=== PATIENT | female | born 1960 | race Caucasian/White ===

== ENCOUNTER → 2019-02-19 08:00 | Outpatient (CLI) | payer OTHER, SELFPAY ==
[2019-02-12 09:46] VITALS: BMI 33.0
[2019-02-19 12:48] LABS: Absolute Lymphocyte Count 1.18 X10^3/ul (0.83-4.51); Absolute Neutrophil Count 1.6 X10^3/uL (2.0-7.7); Basophil# 0.03 X10^3/uL; Basophil% 0.9 % (0-1); Eosinophil# 0.24 X10^3/uL; Eosinophils% 6.9 % (0-5); Hematocrit 42.3 % (37-47); Hemoglobin 13.9 g/dl (12.0-15.0); Lymphocyte # 1.18 X10^3/ul (4.0); Mean Corp Hgb Conc 32.9 g/gl (32-36); Mean Corpuscular Volume 91.2 fL (81-99); Mean Platelet Vol. 12.7 fl (6.2-12.0); Monocyte# 0.39 X10^3/uL; Monocyte% 11.2 % (0-10); Neutrophil # 1.63 X10^3/uL (2.7-7.7); Platelet Count 208 K/mm3 (150-450); RBC Distribution Width CV 12.9 % (11.6-14.6); RBC Distribution Width SD 42.2 fl (35.1-43.9); Red Blood Count 4.64 M/mm3 (4.2-5.4); White Blood Count 3.5 K/mm3 (4.4-11.0)
[2019-02-19 12:52] LABS: POSITIVE COUNT NO; POSITIVE DIFFERENTIAL NO; POSITIVE MORPHOLOGY NO
[2019-02-19 13:19] LABS: AST(SGOT) 33 U/L (15-37); Alanine Aminotransfer ALT/SGPT 46 U/L (13-56); Albumin, Serum 3.6 g/dL (3.2-5.0); Alkaline Phosphatase 86 U/L (45-117); Anion Gap 8 (5-15); BUN 11 mg/dL (7-18); BUN/Creat Ratio 13.1 RATIO (10-20); Calcium,Total 9.1 mg/dL (8.5-10.1); Chloride 104 mmol/L (98-107); Cholesterol 211 mg/dL (200); Creatinine, Serum 0.84 mg/dL (0.55-1.02); EST Glomerular Filtration Rate 73 mL/min (>60); Est Glom Filt Rate - Afr Amer 89 mL/min (>60); Globulin 3.6 g/dL (2.2-4.2); Glucose 92 mg/dL (74-106); High Density Lipoprotein 86 mg/dL; Potassium 3.4 mmol/L (3.5-5.1); Protein, Total 7.2 g/dL (6.4-8.2); Sodium Level 139 mmol/L (136-145); Triglycerides 86 mg/dL; Very Low Density Lipoprotein 17 mg/dL (5-40)
== END ==
PROVIDERS: Family Provider Family Medicine; PCP Internal Medicine; Visit Provider Internal Medicine
DX: Z00.00 Encounter for general adult medical examination without abnormal findings (principal); I10 Essential (primary) hypertension
CPT/HCPCS: 36415; 80053; 80061; 85025

== ENCOUNTER → 2019-04-19 09:43 | Outpatient (CLI) | payer OTHER, SELFPAY ==
[2019-04-19 09:12] VITALS: BMI 34.3
--- NOTE | 2019-04-19 10:27 | EKG12_ITS ---
Test Reason : CP Blood Pressure : / mmHG Vent. Rate : 069 BPM Atrial Rate : 069 BPM P-R Int : 140 ms QRS Dur : 074 ms QT Int : 402 ms P-R-T Axes : 040 -02 014 degrees QTc Int : 430 ms Sinus rhythm with Premature atrial complexes Otherwise normal ECG Confirmed by THEODORE HARRINGTON ([id number]), editor map CECILE MORALES ([id number]) on 04/26/2019 2:28:44 PM Referred By: Chauncey Dale Confirmed By:THEODORE HARRINGTON
== END ==
PROVIDERS: Family Provider Internal Medicine; PCP Internal Medicine; Referring Provider Internal Medicine; Visit Provider Internal Medicine
DX: R07.89 Other chest pain (principal)
CPT/HCPCS: 36415; 84484; 93005

== ENCOUNTER → 2019-08-20 10:19 | Outpatient (CLI) | payer OTHER, SELFPAY ==
[2019-05-14 09:00] VITALS: BMI 33.0
[2019-08-20 12:23] LABS: Absolute Lymphocyte Count 1.83 X10^3/uL (0.83-4.51); Absolute Neutrophil Count 1.3 X10^3/uL (2.0-7.7); Basophil# 0.04 X10^3/uL; Eosinophil# 0.39 X10^3/uL; Eosinophils% 9.7 % (0-5); Hematocrit 40.7 % (37-47); Lymphocyte # 1.83 X10^3/ul (4.0); Lymphocyte % 45.3 % (19-41); Mean Corp Hgb Conc 31.9 g/dL (32-36); Mean Corpuscular Hgb 29.3 pg (27.0-32.0); Mean Corpuscular Volume 91.7 fL (81-99); Mean Platelet Vol. 12.6 fl (6.2-12.0); Monocyte# 0.43 X10^3/uL; Monocyte% 10.6 % (0-10); NRBC Flagged by Analyzer 0 % (0-5); Neutrophil # 1.34 X10^3/uL (2.7-7.7); Neutrophil % 33.2 % (47-70); Platelet Count 265 K/mm3 (150-450); RBC Distribution Width CV 12.5 % (11.6-14.6); RBC Distribution Width SD 41.2 fl (35.1-43.9); Red Blood Count 4.44 M/mm3 (4.2-5.4)
[2019-08-20 12:31] LABS: Anion Gap 4 (5-15); BUN 12 mg/dL (7-18); BUN/Creat Ratio 14.3 RATIO (10-20); Calcium,Total 9.3 mg/dL (8.5-10.1); Chloride 107 mmol/L (98-107); Creatinine, Serum 0.84 mg/dL (0.55-1.02); EST Glomerular Filtration Rate 73 mL/min (>60); Est Glom Filt Rate - Afr Amer 89 mL/min (>60); Glucose 94 mg/dL (74-106); Potassium 4.2 mmol/L (3.5-5.1); Sodium Level 137 mmol/L (136-145)
== END ==
PROVIDERS: Family Provider Internal Medicine; PCP Internal Medicine; Visit Provider Internal Medicine
DX: I10 Essential (primary) hypertension (principal)
CPT/HCPCS: 36415; 80048; 85025

== ENCOUNTER → 2020-01-21 10:18 | Outpatient (CLI) | payer OTHER, SELFPAY ==
[2020-01-21 09:54] VITALS: BMI 33.0
[2020-01-21 12:26] LABS: AST(SGOT) 19 U/L (15-37); Alanine Aminotransfer ALT/SGPT 23 U/L (13-56); Albumin, Serum 3.7 g/dL (3.2-5.0); Alkaline Phosphatase 115 U/L (45-117); Anion Gap 7 (5-15); BUN 12 mg/dL (7-18); Calcium,Total 9.2 mg/dL (8.5-10.1); Chloride 103 mmol/L (98-107); Cholesterol 216 mg/dL (200); Creatinine, Serum 0.75 mg/dL (0.55-1.02); EST Glomerular Filtration Rate 83 mL/min (>60); Est Glom Filt Rate - Afr Amer 101 mL/min (>60); Globulin 3.6 g/dL (2.2-4.2); Glucose 107 mg/dL (74-106); High Density Lipoprotein 74 mg/dL; Potassium 3.5 mmol/L (3.5-5.1); Protein, Total 7.3 g/dL (6.4-8.2); Sodium Level 138 mmol/L (136-145); Triglycerides 138 mg/dL; Very Low Density Lipoprotein 28 mg/dL (5-40)
[2020-01-21 12:27] LABS: Hemoglobin A1c 5.6 % (3.8-5.6)
== END ==
PROVIDERS: PCP Internal Medicine; Referring Provider Internal Medicine; Visit Provider Internal Medicine
DX: I10 Essential (primary) hypertension (principal); E66.9 Obesity, unspecified
CPT/HCPCS: 36415; 80053; 80061; 83036

== ENCOUNTER → 2020-03-03 14:32 | Outpatient (CLI) | payer OTHER, SELFPAY ==
[2019-05-14 09:00] VITALS: BMI 33.0
[2020-01-21 09:54] VITALS: BMI 33.0
--- NOTE | 2020-03-03 14:52 | CT_ITS ---
History: 60-year-old female with osteoarthritis. Preoperative evaluation for XAVIER surgery. Examination and technique: CT of the right hip, knee and ankle without IV contrast. Axial images obtained with multiplanar reformats provided. Dose optimization was utilized. No relevant priors. FINDINGS: Right hip: No fracture or dislocation. Alignment anatomic. No significant degenerative changes. Calcification within the distal gluteus medius tendon near the insertion onto the greater trochanter. Normal bony mineralization. No acute soft tissue abnormality. Right knee: No fracture or dislocation. Marked osteoarthritis of the medial compartment and moderate osteoarthritis of the lateral and patellofemoral compartments. Small joint effusion. Prominent subcutaneous varicosities medially and laterally. Right ankle: No fracture or dislocation. Very mild for age degenerative changes. Alignment anatomic. No acute soft tissue abnormality. CT/Extremity Lower without Contra IMPRESSION: Prominent right knee osteoarthritis. No acute findings. Electronically Signed: Don Cyr, at 8:05 EDT Tel , Service support ,
== END ==
PROVIDERS: PCP Internal Medicine; Referring Provider Orthopaedic Surgery; Visit Provider Orthopaedic Surgery
DX: M17.11 Unilateral primary osteoarthritis, right knee (principal)
CPT/HCPCS: 73700

== ENCOUNTER 2020-03-13 09:06 | Observation (INO) | payer OTHER, SELFPAY ==
[2019-05-14 09:00] VITALS: BMI 33.0
[2020-01-21 09:54] VITALS: BMI 33.0
--- NOTE | 2020-03-03 15:06 | EKG12_ITS ---
Test Reason : PRE OP Blood Pressure : / mmHG Vent. Rate : 068 BPM Atrial Rate : 068 BPM P-R Int : 156 ms QRS Dur : 076 ms QT Int : 410 ms P-R-T Axes : 036 -03 007 degrees QTc Int : 435 ms Normal sinus rhythm Inferior infarct , age undetermined Abnormal ECG Confirmed by THEODORE HARRINGTON ([id number]), offline editor CECILE MORALES ([id number]) on 03/06/2020 11:39:57 AM Referred By: Roland Oviedo Confirmed By:THEODORE HARRINGTON
[2020-03-03 15:42] LABS: Absolute Lymphocyte Count 1.74 X10^3/uL (0.83-4.51); Absolute Neutrophil Count 2.9 X10^3/uL (2.0-7.7); Basophil# 0.06 X10^3/uL; Basophil% 1.1 % (0-1); Eosinophil# 0.16 X10^3/uL; Hematocrit 39.6 % (37-47); Hemoglobin 13.1 g/dL (12.0-15.0); Lymphocyte # 1.74 X10^3/ul (4.0); Lymphocyte % 32.2 % (19-41); Mean Corp Hgb Conc 33.1 g/dL (32-36); Mean Corpuscular Volume 90.6 fL (81-99); Monocyte# 0.49 X10^3/uL; Monocyte% 9.1 % (0-10); NRBC Flagged by Analyzer 0 % (0-5); Neutrophil # 2.94 X10^3/uL (2.7-7.7); Neutrophil % 54.4 % (47-70); Platelet Count 242 K/mm3 (150-450); RBC Distribution Width CV 12.5 % (11.6-14.6); RBC Distribution Width SD 41.4 fl (35.1-43.9); Red Blood Count 4.37 M/mm3 (4.2-5.4); White Blood Count 5.4 K/mm3 (4.4-11.0)
[2020-03-03 16:11] LABS: Anion Gap 5 (5-15); BUN 17 mg/dL (7-18); BUN/Creat Ratio 17.5 RATIO (10-20); Calcium,Total 9.1 mg/dL (8.5-10.1); Chloride 106 mmol/L (98-107); Creatinine, Serum 0.97 mg/dL (0.55-1.02); EST Glomerular Filtration Rate 62 mL/min (>60); Est Glom Filt Rate - Afr Amer 75 mL/min (>60); Glucose 101 mg/dL (74-106); Potassium 3.2 mmol/L (3.5-5.1); Sodium Level 139 mmol/L (136-145)
[2020-03-06 16:24] LABS: Magnesium 2.2 mg/dL (1.6-2.6)
[2020-03-13] VITALS (11 sets, daily range): BP systolic 112–160; BP diastolic 51–85; PULSE 70–82; RESP 16–18; TEMP 36.2–37.2; O2SAT 96–100; BMI 36.5
--- NOTE | 2020-03-13 | KNEE_PTH ---
PATIENT: JR MORALES LOC: [facility]3 U#:[id number] AGE/SX: 60/F ROOM: MS311 RE03/13/[address]: Dr. Roland Oviedo DO : 1960 BED: 1 DIS: 03/14/2020 SPEC #: [id number] RECD: 03/13/20 13:49 STATUS: KRISTINA REQ #: [id number] ANGELINE: 03/13/20 00:[address]: Roland Oviedo DEPT: SURGICAL PATHOLOGY RECD BY: Elias Hartley ENTERED: 03/14/20 08:02 SP TYPE: TOTAL KNEE OTHR DR: Dr. Chauncey Dale MD Tissues: Knee, NOS Procedures: Decalcification bone/plaque Surgery Specimen Level IV HEADER OPERATION: ERAS, total knee replacement robotic arm assist PRE-OP DIAGNOSIS: Right knee osteoarthritis TISSUE SUBMITTED: Right knee bone and tissue MICROSCOPIC DIAGNOSIS Bone and soft tissue of right knee, total knee resection: Degenerative joint disease. Mild synovial hyperplasia. AM:yessy 03/17/20 MICROSCOPIC DESCRIPTION Slides are reviewed. GROSS DESCRIPTION Received is one container designated bone and soft tissue right knee. The specimen consists of multiple fragments of marie-yellow bone measuring in aggregate 10 x 7 x 3 cm. Also in the specimen container are multiple fragments of yellow-white soft tissue measuring in aggregate 9 x 7 x 2 cm. A number of bony fragments contain articular surfaces consistent with tibial plateau and femoral condyle and displaying prominent osteophyte formation and bone erosion. Hook And Eye Sewing Machine Operator sections are submitted in two cassettes as follows: 1 - soft tissue, 2 - bone after decalcification. / SJ:yessy 03/14/20 TC:5 [facility]: [id number]
[2020-03-13] MEDS: Gabapentin 600 MG Tablet PO (09:53)
[2020-03-13] MEDS: Acetaminophen 500 MG Tablet 1000 MG PO ×3 (09:53→21:33)
[2020-03-13 10:00] LABS: Bedside Glucose 109 mg/dL (70-110)
[2020-03-13] MEDS: Lactated Ringers 1,000 ML 100 ML IV (10:30)
[2020-03-13] MEDS: Cefazolin 2 GM in 0.9% Normal Saline 100 ML IV (10:34)
--- NOTE | 2020-03-13 11:55 | OP.PCM_ITS ---
Report of Operation Date of Procedure: 03/13/20 Pre-Operative Diagnosis: OA Right knee Post-Operative Diagnosis: same Surgery/Procedure Performed:: Right TKR windows vmware engineer: Moise Perrin Type of Anesthesia:: Spinal Anesthesiologist: Brayan Bergman - Admkiran VTE Documentation VTE Present on Admission: No VTE Mechan Device Prophylaxis: SCD's, Thigh High ERIC Hose VTE Pharm Prophylaxis ordered?: Yes
--- NOTE | 2020-03-13 12:42 | RAD_ITS ---
STUDY: X-RAY - RIGHT KNEE REASON FOR EXAM: Female, 60 years old. POST OP TECHNIQUE: AP and lateral view(s) of the knee. COMPARISON: None. FINDINGS: Normal visualized distal femur. Normal visualized proximal tibia and fibula. Normal proximal tibiofibular articulation. The patient is status post total knee replacement. There is good alignment. Postoperative soft tissue changes. RAD/Knee 1 or 2 Views IMPRESSION: Status post total knee replacement. There is good alignment. Postoperative soft tissue changes. Electronically Signed: Denver Jacobs, at 13:54 EDT , Service support ,
[2020-03-13] MEDS: Lactated Ringers 1,000 ML 999 ML IV (12:57)
[2020-03-13 13:30] LABS: Hematocrit 37.8 % (37-47); Hemoglobin 12.3 g/dL (12.0-15.0); Mean Corp Hgb Conc 32.5 g/dL (32-36); Mean Corpuscular Hgb 29.8 pg (27.0-32.0); Mean Corpuscular Volume 91.5 fL (81-99); Mean Platelet Vol. 11.9 fl (6.2-12.0); Platelet Count 215 K/mm3 (150-450); RBC Distribution Width CV 12.3 % (11.6-14.6); RBC Distribution Width SD 41.3 fl (35.1-43.9); Red Blood Count 4.13 M/mm3 (4.2-5.4)
[2020-03-13 13:42] LABS: Anion Gap 6 (5-15); BUN 10 mg/dL (7-18); BUN/Creat Ratio 10.6 RATIO (10-20); Calcium,Total 8.8 mg/dL (8.5-10.1); Chloride 106 mmol/L (98-107); Creatinine, Serum 0.94 mg/dL (0.55-1.02); EST Glomerular Filtration Rate 64 mL/min (>60); Est Glom Filt Rate - Afr Amer 78 mL/min (>60); Estimated Creatinine Clearance 54.27 ml/min; Glucose 125 mg/dL (74-106); Potassium 3.5 mmol/L (3.5-5.1); Sodium Level 139 mmol/L (136-145)
[2020-03-13] MEDS: hydroCHLOROthiazide 25 MG Tablet PO (13:57)
[2020-03-13] MEDS: Lactated Ringers 1,000 ML 125 ML IV (13:57)
[2020-03-13] MEDS: Ondansetron 4 MG/2 ML Vial IV (15:50)
[2020-03-13] MEDS: Aspirin 81 MG TAB.CHEW PO (17:46)
[2020-03-13] MEDS: Cefazolin 1 GM/50 ML BAG IV (18:51)
[2020-03-13] MEDS: DiphenhydrAMINE 25 MG Capsule PO (21:33)
[2020-03-13] MEDS: Senna/Docusate Sodium 1 Tablet 2 TABLET PO (21:33)
[2020-03-14] MEDS: Cefazolin 1 GM/50 ML BAG IV (02:13)
[2020-03-14 02:15] VITALS: BP 133/72; PULSE 73; RESP 18; TEMP 36.6; O2SAT 96
[2020-03-14] MEDS: proMETHazine 25 MG/ML Syringe 12.5 MG IM (02:24)
[2020-03-14] MEDS: oxyCODONE 5 MG Tablet PO ×3 (02:25→13:42)
[2020-03-14] MEDS: Acetaminophen 500 MG Tablet 1000 MG PO ×2 (05:33→13:41)
[2020-03-14 05:46] LABS: Hematocrit 38.6 % (37-47); Hemoglobin 12.5 g/dL (12.0-15.0); Mean Corp Hgb Conc 32.4 g/dL (32-36); Mean Corpuscular Hgb 30.9 pg (27.0-32.0); Mean Corpuscular Volume 95.5 fL (81-99); Platelet Count 176 K/mm3 (150-450); RBC Distribution Width CV 12.6 % (11.6-14.6); RBC Distribution Width SD 43.8 fl (35.1-43.9); Red Blood Count 4.04 M/mm3 (4.2-5.4); White Blood Count 7.4 K/mm3 (4.4-11.0)
[2020-03-14 06:06] LABS: Anion Gap 6 (5-15); BUN 8 mg/dL (7-18); BUN/Creat Ratio 9.6 RATIO (10-20); Calcium,Total 8.6 mg/dL (8.5-10.1); Chloride 107 mmol/L (98-107); Creatinine, Serum 0.84 mg/dL (0.55-1.02); EST Glomerular Filtration Rate 74 mL/min (>60); Est Glom Filt Rate - Afr Amer 89 mL/min (>60); Estimated Creatinine Clearance 60.73 ml/min; Glucose 112 mg/dL (74-106); Potassium 3.6 mmol/L (3.5-5.1); Sodium Level 138 mmol/L (136-145)
--- NOTE | 2020-03-14 07:50 | PN.ORTHO_ITS ---
Subjective: Patient sitting at bedside eating breakfast. Patient states pain is well- managed. Patient denies chest pain, shortness of breath, calf pain, nausea vomiting. Patient has no other complaints. Patient states she is ready for discharge home this afternoon. Objective: Dressings clean dry intact. Negative signs and symptoms of DVT. I reviewed the labs and vitals all noted in the medical record. Patient is afebrile. Patient has no respiratory distress, speaking in full sentences. Neurovascular she is otherwise intact. - Physical Exam Vitals/I&O's: Vital Signs Temp Pulse Resp BP Pulse Ox 97.8 F 73 18 133/72 H 96 03/14/20 02:15 03/14/20 02:15 03/14/20 02:15 03/14/20 02:15 03/14/20 02:15 Oxygen Flow Rate (L/min) 6 Oxygen Delivery Method Room Air Weight: 98 kg Body Mass Index (BMI) 36.5 Intake and Output for Last 24 Hours 03/12/20 03/13/20 03/14/20 23:59 23:59 23:59 Intake Total 3843.33 / 3843.33 991.67 / 991.67 Output Total 1300 / 1300 Balance 3843.33 / 3843.33 -308.33 / -308.33 General: Alert, Oriented x3, Cooperative HEENT: PERRLA Oral: Moist Mucosa Neurological: Cranial nerves II-XII grossly intact Psych/Mental Status: Normal Affect Laboratory Results 03/13/20 09:51: POC Glucose 109 03/13/20 13:20: WBC 5.0, RBC 4.13 L, Hgb 12.3, Hct 37.8, MCV 91.5, MCH 29.8, MCHC 32.5, RDW Std Deviation 41.3, RDW Coeff of Gen 12.3, Plt Count 215, MPV 11.9 03/13/20 13:20: Sodium 139, Potassium 3.5, Chloride 106, Carbon Dioxide 27.0, Anion Gap 6, BUN 10, Creatinine 0.94, Estim Creat Clear Calc 54.27, Est GFR (MDRD) Af Amer 78, Est GFR (MDRD) Non-Af 64, BUN/Creatinine Ratio 10.6, Glucose 125 H, Calcium 8.8 03/14/20 05:14: WBC 7.4, RBC 4.04 L, Hgb 12.5, Hct 38.6, MCV 95.5, MCH 30.9, MCHC 32.4, RDW Std Deviation 43.8, RDW Coeff of Gen 12.6, Plt Count 176, MPV 12.0 03/14/20 05:14: Sodium 138, Potassium 3.6, Chloride 107, Carbon Dioxide 25.0, Anion Gap 6, BUN 8, Creatinine 0.84, Estim Creat Clear Calc 60.73, Est GFR (MDRD) Af Amer 89, Est GFR (MDRD) Non-Af 74, BUN/Creatinine Ratio 9.6 L, Glucose 112 H, Calcium 8.6 Current Medications Acetaminophen (Tylenol) 1,000 mg PO Q8 [facility] Last Admin: 03/14/20 05:33 Dose: 1,000 mg Documented by: Albuterol Sulfate (Ventolin Aerosols) 2.5 mg INHALATION Q4H PRN PRN Reason: shortness of breath/wheezing Alprazolam (Xanax) 0.25 mg PO QHS PRN PRN Reason: anxiety Aspirin (Aspirin, Baby) 81 mg PO BIDCM [facility] Last Admin: 03/13/20 17:46 Dose: 81 mg Documented by: Diphenhydramine HCl (Benadryl) 25 mg PO QHS [facility] Last Admin: 03/13/20 21:33 Dose: 25 mg Documented by: Fluticasone Propionate (Flonase Nasal [place]) 2 spray NASAL DAILY [facility] Hydrochlorothiazide (Hctz) 25 mg PO DAILY [facility] Last Admin: 03/13/20 13:57 Dose: 25 mg Documented by: Sodium Chloride () 250 mls @ 15 mls/hr IV .[id number] PRN PRN Reason: Saline Flush Sodium Chloride () 250 mls @ 15 mls/hr IV .[id number] PRN PRN Reason: Additional IVPB Infusion Metoprolol Succinate (Toprol Xl (Beta Aime)) 25 mg PO DAILY [facility] Ondansetron HCl (Zofran) 4 mg IV Q8H PRN PRN PRN Reason: NAUSEA Last Admin: 03/13/20 15:50 Dose: 4 mg Documented by: Oxycodone HCl (Oxyir) 5 - 10 mg PO Q4H PRN PRN PRN Reason: Pain Score 4-10/10 Last Admin: 03/14/20 02:25 Dose: 5 mg Documented by: Pantoprazole Sodium (Protonix) 40 mg PO DAILY [facility] Pot[facility] ([facility] Last Admin: 03/13/20 17:47 Dose: 20 meq Documented by: Promethazine HCl (Phenergan) 12.5 mg IM Q6H PRN PRN; Protocol PRN Reason: NAUSEA/VOMITING Last Admin: 03/14/20 02:24 Dose: 12.5 mg Documented by: Senna/Docusate Sodium (Senokot-S, Ivonne-Colace) 2 tablet PO BID [facility] Last Admin: 03/13/20 21:33 Dose: 2 tablet Documented by: Sodium Chloride () 10 - 40 ml IV UD PRN PRN Reason: SALINE FLUSH Medical Necessity - Tobacco Use Smoking Status: Never smoker Tobacco Use: Non-smoker Assessment/Plan All Active Problems (Last Reviewed 01/21/20 @ 09:54 by Nima Mccallum) Skin cancer (Resolved)
--- NOTE | 2020-03-14 08:04 | DCINST_ITS ---
Discharge Diet: No Restrictions Discharge Activity: May Not Drive, May Shower, Use Walker May shower in (days): 3 Ice area for (Minutes): 20 - each hour while awake. Weight Bearing Status: Weight bearing as tolerated Elevate: Operative Extremity Additional Activity Instructions:: Wear elastic stockings for 2 weeks after your surgery. Call your doctor if your incision/area has: Continuous Slow Oozing, Sudden Increased Bleeding, Increased Pain/ Swelling, Increased Redness, Foul Smelling Discharge Call your doctor if you observe: Fever of 101 or Higher, Coldness, Increased Pain - in extremity, Numbness or Tingling, Change in Color, Calf discomfort, Uncontrolled pain Change Dressing in (Days):: 0 - and daily as needed. Remove Dressing in (days):: 3 Cleanse incision/area with: Soap & Water Allergies/Adverse Reactions: Allergies ciprofloxacin [From Cipro] Allergy (Verified 03/06/20 15:15) Hives dyes Allergy (Severe, Uncoded 03/06/20 15:15) Dizzines, Vomiting Medications to take at Discharge ibuprofen 200 mg tablet 200 mg PO Q6H PRN 02/12/19 krill oil 500 mg capsule 500 mg PO DAILY cap 02/12/19 potassium chloride 20 mEq tablet,extended release 20 meq PO BID 02/12/19 alprazolam 0.25 mg tablet 0.25 mg PO QHS PRN #30 tab 08/20/19 fluticasone propionate 50 mcg/actuation nasal spray,suspension 2 spray INTRANASAL DAILY #15.8 ml 08/20/19 omeprazole 40 mg capsule,delayed release 40 mg PO DAILY #90 cap 08/27/19 albuterol sulfate 90 mcg/actuation aerosol inhaler 2 puff INHALATION Q6H PRN #8.5 g 01/21/20 alprazolam 0.25 mg tablet 0.25 mg PO QHS PRN #30 tab 02/07/20 hydrochlorothiazide 25 mg tablet 25 mg PO DAILY #90 tab 03/03/20 metoprolol succinate 25 mg tablet,extended release 24 hr 25 mg PO DAILY #90 tab 03/03/20 Diphenhydramine HCl [Benadryl Allergy] 25 mg PO QHS 03/06/20 Acetaminophen [Tylenol] 1,000 mg PO Q8 #90 tab 03/14/20 Aspirin [Aspirin, Baby] 81 mg PO BIDCM #60 tab.chew 03/14/20 Oxycodone [Oxyir] 5 - 10 mg PO Q4H PRN PRN 7 Days #84 tablet 03/14/20 Senna/Docusate Sodium [Senokot-S] 2 tab PO BID tab 03/14/20 proMETHazine tablet [Phenergan tablet] 25 mg PO Q6H PRN PRN #30 tab 03/14/20 The following prescriptions were given: Aspirin [Aspirin, Baby] 81 mg PO BIDCM #60 tab.chew Transmission Status: Pending to [facility] Oxycodone [Oxyir] 5 - 10 mg PO Q4H PRN PRN 7 Days #84 tablet PRN Reason: Pain Score 4-10/10 Transmission Status: Sent to [facility] proMETHazine tablet [Phenergan tablet] 25 mg PO Q6H PRN PRN #30 tab PRN Reason: Nausea Transmission Status: Pending to [facility] Acetaminophen [Tylenol] 1,000 mg PO Q8 #90 tab Transmission Status: Pending to [facility] Primary Care Physician: Chauncey Dale MD [Primary Care Provider] - Test Results: Test results from this visit will be discussed in further detail at your follow- up appointment, if applicable. Please Follow Up With: Moise Perrin PA-C When: as scheduled/see pink sheet
[2020-03-14 08:15] VITALS: BP 146/64; PULSE 76; RESP 16; TEMP 36.7; O2SAT 98
[2020-03-14 08:16] VITALS: PULSE 76
[2020-03-14] MEDS: hydroCHLOROthiazide 25 MG Tablet PO (08:16)
[2020-03-14] MEDS: Senna/Docusate Sodium 1 Tablet 2 TABLET PO (08:16)
[2020-03-14] MEDS: Pantoprazole Sodium 40 MG Tablet PO (08:16)
[2020-03-14] MEDS: Aspirin 81 MG TAB.CHEW PO (08:16)
[2020-03-14] MEDS: Metoprolol(XL)Succ 25 MG Tablet PO (08:16)
--- NOTE | 2020-03-14 09:35 | CASEMGMT ---
RN AIDAN PAINT COATING MACHINE OPERATOR CM to room to meet with patient for initial transition planning/care coordination assessment. SOFIA BERMUDEZ introduced self and role at [facility]. Pt voices understanding and consents to assessment at this time. Pt resting in bed in no distress at this time. Pt is A/O at this time and answers all questions appropriately. Care providers, pharmacy, and demographics verified/updated at this time. PCP: Dr Dale Specialists: Dr Oviedo Preferred Pharmacy: [facility]. Insurance: [employer] Prescription Benefit: Yes Living Will/HPOA: does not have LW but does have Healthcare POA, who is her . Pt made aware SW can assist w/LW if she would like to complete. Pt states not at this time. Given Drum [employer] Rac card and made aware can make an appt as an Out-pt if she chooses to complete in the future. LNOK: . 2 daughters: Darcy Huggins and Almaz Jaramillo Living Arrangements: Lives w/her in 2 story home w/2 steps to enter. 18-yr-old grandson lives with them. Pt was independent w/ADL's and IADL's prior to admission. States her has taken off of work for a week to help care for her. Transportation: Pt drove prior to surgery. will take her home @ discharge. DME: [facility] has the following DME: tub bench, hand held shower, raised toilet seat, cane, grab bars, walker. Pt states no need for further DME at this time. HHC/SNF: No history of either. No needs identified. Pt states she is aware she has an initial appt w/PT @ [facility] tomorrow 03/15/20 @ 0900 and states plan is to schedule PT appts at that time. Pt wishes to return home and states has no concerns with going home at time of discharge. CM to follow for any discharge planning/needs. Pt voices no concerns/needs at this time. Advised pt to ask for CM if any questions/concerns/needs arise. Voices understanding. PLAN: Home w/OP therapy @ [facility] Nancy DRAKE RN, CM
[2020-03-14] MEDS: morphine SR 15 MG Tablet PO (11:04)
[2020-03-14 13:45] VITALS: BP 134/79; PULSE 76; RESP 18; TEMP 36.7; O2SAT 97
== END 2020-03-14 14:40 | disposition home or self-care (01) ==
LOC: AC 09:07 → MS3 10:22
PROVIDERS: Anesthesiology; Admitting Provider Orthopaedic Surgery; PCP Internal Medicine; Referring Provider Orthopaedic Surgery; Visit Provider Orthopaedic Surgery
PROC: 0SRC0JZ Replacement of Right Knee Joint with Synthetic Substitute, Open Approach (ICD-10-PCS; CPT 27447; principal; 2020-03-13 10:20)
DX: M17.11 Unilateral primary osteoarthritis, right knee (principal); Z11.59 Encounter for screening for other viral diseases; R94.31 Abnormal electrocardiogram [ECG] [EKG]; K58.9 Irritable bowel syndrome, unspecified; K21.9 Gastro-esophageal reflux disease without esophagitis; F41.9 Anxiety disorder, unspecified; I10 Essential (primary) hypertension; J45.909 Unspecified asthma, uncomplicated; Z79.899 Other long term (current) drug therapy; Z79.82 Long term (current) use of aspirin; Z79.51 Long term (current) use of inhaled steroids; M21.161 Varus deformity, not elsewhere classified, right knee
CPT/HCPCS: 01400; 27447; 64447; S2900; 36415; 73560; 80048; 82962; 83735; 85025; 85027; 87081; 87635; 88305; 88311; 93005; 94799; 96361; 96365; 96366; 96375; 97110; 97116; 97161; 97166; 97530; 97535; 99218; 99251; C1776; J7120; G0378; G0379; G0463; J2405; U0003

== ENCOUNTER → 2020-08-21 | Outpatient (CLI) | payer OTHER, SELFPAY ==
[2020-05-19 13:43] VITALS: BMI 36.8
== END | disposition home or self-care (01) ==
LOC: LABSPEC 13:57
PROVIDERS: PCP Internal Medicine; Referring Provider Internal Medicine; Visit Provider Internal Medicine
DX: Z20.822 Contact with and (suspected) exposure to COVID-19 (principal)
CPT/HCPCS: 87635; U0005; U0003

== ENCOUNTER → 2020-09-15 10:04 | Outpatient (CLI) | payer OTHER, SELFPAY ==
[2020-09-15 09:39] VITALS: BMI 38.0
[2020-09-15 12:31] LABS: Anion Gap 8 (5-15); BUN 12 mg/dL (7-18); Calcium,Total 9.2 mg/dL (8.5-10.1); Chloride 104 mmol/L (98-107); Creatinine, Serum 0.86 mg/dL (0.55-1.02); EST Glomerular Filtration Rate 71 mL/min (>60); Est Glom Filt Rate - Afr Amer 86 mL/min (>60); Glucose 91 mg/dL (74-106); Potassium 3.8 mmol/L (3.5-5.1); Sodium Level 139 mmol/L (136-145)
== END ==
PROVIDERS: PCP Internal Medicine; Referring Provider Internal Medicine; Visit Provider Internal Medicine
DX: I10 Essential (primary) hypertension (principal)
CPT/HCPCS: 36415; 80048

== ENCOUNTER 2020-10-20 08:12 | Outpatient (RCR) | payer OTHER, SELFPAY ==
[2020-09-15 09:39] VITALS: BMI 38.0
[2020-10-20] MEDS: COVID-19 VACC, MRNA(PFIZER)/PF 30 MCG/0.3 ML SYRINGE IM (14:44)
[2020-11-10] MEDS: COVID-19 VACC, MRNA(PFIZER)/PF 30 MCG/0.3 ML SYRINGE IM (14:23)
== END 2021-01-16 23:59 ==
LOC: IMMUN 08:12
PROVIDERS: PCP Internal Medicine; Visit Provider Family Medicine
DX: Z23 Encounter for immunization (principal)
CPT/HCPCS: 0001A; 0002A; 91300

== ENCOUNTER → 2020-12-15 09:18 | Outpatient (CLI) | payer OTHER, SELFPAY ==
[2020-12-15 09:01] VITALS: BMI 38.0
[2020-12-15 12:06] LABS: Erythrocyte Sedimentation Rate 32 mm/hr (0-30)
[2020-12-15 12:29] LABS: Rheumatoid Factor < 10.0 IU/mL (<15)
[2020-12-17 15:28] LABS: ANTINUCLEAR ANTIBODIES DIRECT Negative (Negative)
== END ==
PROVIDERS: PCP Internal Medicine; Referring Provider Internal Medicine; Visit Provider Internal Medicine
DX: M19.90 Unspecified osteoarthritis, unspecified site (principal)
CPT/HCPCS: 36415; 85652; 86038; 86140; 86225; 86235; 86431

== ENCOUNTER → 2021-05-04 | Outpatient (CLI) | payer OTHER, SELFPAY | END | disposition home or self-care (01) | PROVIDERS: PCP Internal Medicine; Referring Provider Physician Assistant; Visit Provider Physician Assistant | DX: Z20.822 Contact with and (suspected) exposure to COVID-19 (principal) | CPT/HCPCS: 87635; U0005; U0003 ==

== ENCOUNTER → 2021-05-25 09:35 | Outpatient (CLI) | payer OTHER, SELFPAY | PROVIDERS: PCP Internal Medicine; Referring Provider Physician Assistant; Visit Provider Physician Assistant | DX: Z00.00 Encounter for general adult medical examination without abnormal findings (principal); Z13.220 Encounter for screening for lipoid disorders; Z13.6 Encounter for screening for cardiovascular disorders; I10 Essential (primary) hypertension; K21.9 Gastro-esophageal reflux disease without esophagitis; E66.9 Obesity, unspecified | CPT/HCPCS: 36415 ==

== ENCOUNTER 2021-09-05 14:24 | Outpatient (CLI) | payer OTHER, SELFPAY ==
--- NOTE | 2021-09-05 | LES_PTH ---
PATIENT: JR MORALES LOC: [facility] U#:[id number] AGE/SX: 61/F ROOM: RE09/05/[address]: Dr. Mesfin Figueredo DO : 1960 BED: DIS: 09/05/2021 SPEC #: [id number] RECD: 09/05/21 16:33 STATUS: KRISTINA KARLOS #: [id number] ANGELINE: 09/05/21 00:[address]: Mesfin Figueredo DEPT: SURGICAL PATHOLOGY RECD BY: Sarah Elizalde ENTERED: 09/06/21 07:06 SP TYPE: Lesion OTHR DR: Dr. Chauncey Dale MD Tissues: Skin of flank, NOS Procedures: Surgery Specimen Level IV HEADER OPERATION: Shave excision PRE-OP DIAGNOSIS: Inflamed seborrheic keratosis TISSUE SUBMITTED: Right flank MICROSCOPIC DIAGNOSIS Skin lesion of right flank, shave biopsy: Verrucoid keratosis with associated parakeratosis and hyperkeratosis. AM:yessy 09/07/2021 MICROSCOPIC DESCRIPTION Slides are reviewed. GROSS DESCRIPTION Received is one container labeled with the patient's name and not further designated. The specimen consists of a shave biopsy of marie-white skin measuring 0.5 x 0.5 x 0.1 cm. The specimen is inked, bisected and submitted entirely in one cassette. / SJ:yessy 09/06/2021 TC:5 CPT: 45461
== END 2021-09-05 23:59 | disposition short-term general hospital (02) ==
LOC: LABSPEC 14:25
PROVIDERS: PCP Internal Medicine; Referring Provider Family Medicine; Visit Provider Family Medicine
DX: L82.0 Inflamed seborrheic keratosis (principal)
CPT/HCPCS: 88305

== ENCOUNTER → 2022-01-15 | Outpatient (CLI) | payer OTHER, SELFPAY ==
[2022-01-15 10:34] LABS: Mucous, Urine 0 SEEN /hpf (<or=2+); Squamous Epithelial Cells - UA 0 SEEN /hpf (5-10)
[2022-01-15 12:05] LABS: Color, Urine Yellow (Yellow); Glucose, Dipstick Normal (Normal); Ketone-Dipstick Negative (Negative); Leukocyte Esterase-Dipstick 500 /ul (Negative); Nitrite-Dipstick Negative (Negative); Occult Blood-Urine 250 /ul (Negative); Protein-Dipstick 100 mg/dl (Negative); Urine Bilirubin Dipstick Negative (Negative); Urine Clarity Cloudy (Clear); Urine Urobilinogen Normal (Normal); Urine pH 6.5 (5.0 - 8.0)
[2022-01-15 12:14] LABS: Bacteria 1+ /hpf (None Seen); Red Blood Cells-Urine 5-10 SEEN /hpf (0-5); White Blood Cells 50-100 SEEN /hpf (0-5)
== END | disposition home or self-care (01) ==
LOC: LABSPEC 10:33
PROVIDERS: PCP Internal Medicine; Referring Provider Physician Assistant; Visit Provider Physician Assistant
DX: R35.0 Frequency of micturition (principal)
CPT/HCPCS: 81001; 87077; 87086; 87088; 87186

== ENCOUNTER → 2022-04-05 | Outpatient (CLI) | payer OTHER, SELFPAY | END | disposition home or self-care (01) | LOC: BIMLAB 09:04 | PROVIDERS: PCP Internal Medicine; Referring Provider Physician Assistant; Visit Provider Physician Assistant | DX: Z00.00 Encounter for general adult medical examination without abnormal findings (principal); Z13.220 Encounter for screening for lipoid disorders; Z13.6 Encounter for screening for cardiovascular disorders; Z13.29 Encounter for screening for other suspected endocrine disorder | CPT/HCPCS: 36415 ==

== ENCOUNTER → 2022-05-10 | Outpatient (CLI) | payer OTHER, SELFPAY ==
[2022-05-10 12:04] LABS: Absolute Lymphocyte Count 1.72 X10^3/uL (0.83-4.51); Basophil# 0.03 X10^3/uL; Basophil% 0.7 % (0-1); Eosinophil# 0.16 X10^3/uL; Eosinophils% 3.7 % (0-5); Hemoglobin 11.4 g/dL (12.0-15.0); Lymphocyte # 1.72 X10^3/ul (0.83-4.51); Lymphocyte % 39.4 % (19-41); Mean Corp Hgb Conc 30.8 g/dL (32-36); Mean Corpuscular Hgb 26.6 pg (27.0-32.0); Mean Corpuscular Volume 86.4 fL (81-99); Mean Platelet Vol. 12.3 fl (6.2-12.0); Monocyte# 0.41 X10^3/uL; Monocyte% 9.4 % (0-10); NRBC Flagged by Analyzer 0 % (0-5); Neutrophil # 2.03 X10^3/uL (2.7-7.7); Neutrophil % 46.6 % (47-70); POSITIVE MORPHOLOGY YES; Platelet Count 266 K/mm3 (150-450); RBC Distribution Width CV 21.2 % (11.6-14.6); RBC Distribution Width SD 65.8 fl (35.1-43.9); Red Blood Count 4.28 M/mm3 (4.2-5.4); White Blood Count 4.4 K/mm3 (4.4-11.0)
[2022-05-10 12:11] LABS: Differential Indicated SCAN CRITERIA MET
== END | disposition home or self-care (01) ==
LOC: BIMLAB 10:20
PROVIDERS: PCP Internal Medicine; Referring Provider Nurse Practitioner Family; Visit Provider Nurse Practitioner Family
DX: I10 Essential (primary) hypertension (principal)
CPT/HCPCS: 36415; 85025

== ENCOUNTER → 2022-09-13 | Outpatient (CLI) | payer OTHER, SELFPAY ==
[2022-09-13 12:05] LABS: Absolute Lymphocyte Count 1.35 X10^3/uL (0.83-4.51); Absolute Neutrophil Count 1.5 X10^3/uL (2.0-7.7); Basophil# 0.04 X10^3/uL; Basophil% 1.1 % (0-1); Eosinophil# 0.16 X10^3/uL; Eosinophils% 4.6 % (0-5); Hematocrit 40.8 % (37-47); Hemoglobin 13.4 g/dL (12.0-15.0); Lymphocyte # 1.35 X10^3/ul (0.83-4.51); Lymphocyte % 38.7 % (19-41); Mean Corp Hgb Conc 32.8 g/dL (32-36); Mean Corpuscular Hgb 30.1 pg (27.0-32.0); Mean Corpuscular Volume 91.7 fL (81-99); Mean Platelet Vol. 12.4 fl (6.2-12.0); Monocyte% 11.5 % (0-10); NRBC Flagged by Analyzer 0 % (0-5); Neutrophil # 1.54 X10^3/uL (2.7-7.7); Neutrophil % 44.1 % (47-70); Platelet Count 247 K/mm3 (150-450); RBC Distribution Width CV 14.3 % (11.6-14.6); RBC Distribution Width SD 48.3 fl (35.1-43.9); Red Blood Count 4.45 M/mm3 (4.2-5.4); White Blood Count 3.5 K/mm3 (4.4-11.0)
[2022-09-13 12:25] LABS: AST(SGOT) 22 U/L (15-37); Alanine Aminotransfer ALT/SGPT 28 U/L (13-56); Albumin, Serum 3.8 g/dL (3.2-5.0); Alkaline Phosphatase 100 U/L (45-117); Anion Gap 10 (5-15); BUN 14 mg/dL (7-18); BUN/Creat Ratio 17.7 RATIO (10-20); Calcium,Total 9.2 mg/dL (8.5-10.1); Chloride 105 mmol/L (98-107); Cholesterol 231 mg/dL (200); Creatinine, Serum 0.79 mg/dL (0.55-1.02); EST Glomerular Filtration Rate 78 mL/min (>60); Est Glom Filt Rate - Afr Amer 94 mL/min (>60); Globulin 3.8 g/dL (2.2-4.2); Glucose 102 mg/dL (74-106); High Density Lipoprotein 84 mg/dL; Protein, Total 7.6 g/dL (6.4-8.2); Sodium Level 140 mmol/L (136-145); Triglycerides 149 mg/dL; Very Low Density Lipoprotein 30 mg/dL (5-40)
== END | disposition home or self-care (01) ==
LOC: BIMLAB 09:40
PROVIDERS: PCP Internal Medicine; Referring Provider Internal Medicine; Visit Provider Internal Medicine
DX: I10 Essential (primary) hypertension (principal)
CPT/HCPCS: 36415; 80053; 80061; 85025

== ENCOUNTER → 2022-09-27 | Outpatient (CLI) | payer OTHER, SELFPAY ==
--- NOTE | 2022-09-27 07:37 | BI_ITS ---
MAMMOGRAPHY - BILATERAL SCREENING REASON FOR EXAM: Female, 62 years old. Routine annual screening examination. PERTINENT HISTORY: Aunt with breast cancer. TECHNIQUE: Digital bilateral breast leonidas (3D mammographic acquisition) in the CC and MLO projections. 2-D mediolateral oblique (MLO) and craniocaudad (CC) views of both breasts were obtained. CAD: Full Field Digital Mammography with Computer Added Detection was performed. COMPARISON: Comparison is made with prior outside examination 05/23/2021. FINDINGS: Breast Composition: There are scattered areas of fibroglandular density. There are no dominant masses or suspicious calcifications. Stable small benign-appearing bilateral axillary lymph nodes. No other significant abnormalities are identified. There has been no significant change since the prior study. BI/SCRN MAMM (CAD)W/LEONIDAS BILAT IMPRESSION: Stable bilateral screening mammogram. Yearly follow-up mammogram recommended. (A) ASSESSMENT CATEGORY: BIRADS Category 2: Benign. A letter regarding these results will be sent to the patient by the facility within 30 days. Approximately 10% of breast cancers are not detected by mammography. A normal mammogram should not delay biopsy of a clinically suspicious abnormality. [id number] Electronically Signed: Denver Jacobs MD at 14:50 EST ,
== END | disposition home or self-care (01) ==
PROVIDERS: PCP Internal Medicine; Visit Provider Internal Medicine
DX: Z12.31 Encounter for screening mammogram for malignant neoplasm of breast (principal); Z80.3 Family history of malignant neoplasm of breast
CPT/HCPCS: 77063; 77067

== ENCOUNTER → 2023-05-16 | Outpatient (CLI) | payer OTHER, SELFPAY ==
[2023-05-16 12:21] LABS: Absolute Lymphocyte Count 1.74 X10^3/uL (0.83-4.51); Absolute Neutrophil Count 3.2 X10^3/uL (2.0-7.7); Basophil# 0.03 X10^3/uL; Basophil% 0.5 % (0-1); Eosinophil# 0.06 X10^3/uL; Eosinophils% 1.1 % (0-5); Hemoglobin 13.3 g/dL (12.0-15.0); Lymphocyte # 1.74 X10^3/ul (0.83-4.51); Mean Corp Hgb Conc 33.3 g/dL (32-36); Mean Corpuscular Hgb 30.2 pg (27.0-32.0); Mean Corpuscular Volume 90.9 fL (81-99); Mean Platelet Vol. 12.1 fl (6.2-12.0); Monocyte# 0.56 X10^3/uL; NRBC Flagged by Analyzer 0 % (0-5); Neutrophil # 3.22 X10^3/uL (2.7-7.7); Neutrophil % 57.2 % (47-70); Platelet Count 229 K/mm3 (150-450); RBC Distribution Width CV 13.4 % (11.6-14.6); White Blood Count 5.6 K/mm3 (4.4-11.0)
[2023-05-16 12:23] LABS: Erythrocyte Sedimentation Rate 17 mm/hr (0-30)
[2023-05-16 13:25] LABS: Anion Gap 7 (5-15); BUN 14 mg/dL (7-18); CRP < 2.90 mg/L (0.0-3.0); Calcium,Total 9.2 mg/dL (8.5-10.1); Chloride 103 mmol/L (98-107); EST Glomerular Filtration Rate 60 mL/min (>60); Est Glom Filt Rate - Afr Amer 72 mL/min (>60); Glucose 99 mg/dL (74-106); Potassium 3.4 mmol/L (3.5-5.1); Rheumatoid Factor < 10.0 IU/mL (<15); Sodium Level 134 mmol/L (136-145)
[2023-05-20 13:08] LABS: CCP IgG Antibodies 4 units (0-19)
== END | disposition home or self-care (01) ==
LOC: BIMLAB 10:09
PROVIDERS: PCP Internal Medicine; Referring Provider Internal Medicine; Visit Provider Internal Medicine
DX: M19.90 Unspecified osteoarthritis, unspecified site (principal); I10 Essential (primary) hypertension
CPT/HCPCS: 36415; 80048; 85025; 85652; 86140; 86200; 86431

== ENCOUNTER → 2023-05-20 | Outpatient (CLI) | payer OTHER, SELFPAY ==
--- NOTE | 2023-05-20 09:47 | RAD_ITS ---
STUDY: X-RAY CHEST REASON FOR EXAM: Female, 63 years old. Shortness of breath. TECHNIQUE: Frontal and lateral views of the chest. COMPARISON: None. FINDINGS: Mild hyperinflation with scattered healed parenchymal granulomatous calcifications. There is no demonstrated pleural abnormality. Normal size heart. Normal mediastinum and kumar. Normal visualized pulmonary arteries. Normal visualized aortic arch and descending thoracic aorta. Normal visualized thoracic spine. Normal visualized ribs, clavicles, and shoulders. Small hiatal hernia. RAD/Chest PA and Lateral IMPRESSION: Mild hyperinflation with small hiatal hernia. No active or acute cardiopulmonary disease. Electronically Signed: Moise Do MD at 9:58 EDT ,
== END | disposition home or self-care (01) ==
LOC: MTRAD 09:47
PROVIDERS: PCP Internal Medicine; Referring Provider Physician Assistant; Visit Provider Physician Assistant
DX: R06.02 Shortness of breath (principal)
CPT/HCPCS: 71046

== ENCOUNTER 2023-06-02 09:04 | Emergency (ER) | payer OTHER, SELFPAY ==
[2023-06-02] VITALS (8 sets, daily range): BP systolic 137–196; BP diastolic 77–128; PULSE 72–97; RESP 16–24; TEMP 36.6; O2SAT 94–98; BMI 39.1
--- NOTE | 2023-06-02 09:19 | EX.ED.DYSGE1 ---
HPI History of Present Illness Chief Complaint: Hypertension Informant: patient Onset/Context/Timing Onset: Yesterday Context: Gradual Onset Timing: Continuous Narrative Narrative: 63-year-old female states she is very dyspneic even with light exertion this morning, started yesterday to get worse, but she has had this for a couple of weeks. She was seen in urgent care for it 1-2 weeks ago and had a negative COVID and negative chest x-ray. She states it has been there but not as bad until yesterday and this morning. She gets chest tightness when she exerts herself and gets dyspneic as well. That all goes away when she rests. She denies orthopnea or leg edema. She has no known heart problems, she had a negative stress test maybe 5 years ago she estimates, at a different hospital. She states she checked her blood pressure this morning prior to taking her morning medication and it was approximately 170/120. She is concerned about this. She states subsequent to taking her pressure at home, she took her morning metoprolol. Denies any leg pain history of DVT or PE, she is not anticoagulated she takes a baby aspirin every day. No recent long trips, immobilization, hospitalization, surgery. [facility] Medical History Acute sinusitis Anxiety Arthritis Asthma Contact with or exposure to other viral diseases Elbow fracture, left Failed total right knee replacement Health care maintenance High blood pressure Hypertension Insomnia Left hip pain Low blood potassium Migraines Obesity (BMI 30-39.9) Osteoarthritis Seasonal allergies Shortness of breath Skin cancer Upper respiratory infection Urinary tract infection with hematuria Home Medications krill oil 500 mg capsule 500 mg PO DAILY 02/12/19 [History Last Taken Unknown] diphenhydramine HCl 25 mg tablet 25 mg PO QHS allergies 03/06/20 [History Last Taken Unknown] acetaminophen 500 mg tablet 1,000 mg (2 x 500 mg) PO Q8 #90 tabs 03/14/20 [Rx Last Taken Unknown] omeprazole 40 mg capsule,delayed release 40 mg PO BID #180 caps 11/06/21 [Rx Last Taken Unknown] albuterol sulfate 90 mcg/actuation aerosol inhaler (Ventolin HFA) 2 puff inhalation Q6H PRN shortness of breath or wheezing #8.5 grams 07/26/22 [Rx Last Taken Unknown] potassium chloride 20 mEq tablet,extended release 20 meq PO BID #180 tabs 04/29/22 [Rx Last Taken Unknown] hydrochlorothiazide 25 mg tablet 25 mg PO DAILY #90 tabs 08/09/22 [Rx Last Taken Unknown] losartan 50 mg tablet 50 mg PO DAILY #90 tabs 08/09/22 [Rx Last Taken Unknown] metoprolol succinate 25 mg tablet,extended release 24 hr 25 mg PO DAILY #90 tabs 01/08/23 [Rx Last Taken Unknown] tramadol 50 mg tablet 50 mg PO Q12H PRN pain #14 tabs 01/08/23 [Rx Last Taken Unknown] baclofen 10 mg tablet See Rx Instructions .Route .COMPLEX #30 tabs 02/28/23 [Rx Last Taken Unknown] escitalopram oxalate 5 mg tablet See Rx Instructions .Route .COMPLEX #90 tabs 04/30/23 [Rx Last Taken Unknown] alprazolam 0.25 mg tablet 0.25 mg PO QHS PRN sleep #30 tabs 05/30/23 [Rx Last Taken Unknown] apixaban 5 mg (74 tabs) tablets in a dose pack (Flinja DVT-PE Treat 30D Start) 5 mg PO BID #74 tabs 06/02/23 [Rx Last Taken Unknown] Allergy/AdvReac Type Severity Reaction Status Date / Time ciprofloxacin [From Cipro] Allergy Hives Verified 06/02/23 09:07 Iodinated Contrast Media Allergy DIZZINESS, Verified 06/02/23 09:07 VOMITING Family History Sister Rheumatoid arthritis Secondary Sjogren's syndrome Father Lung cancer Mother Hypertension Thyroid disorder Daughter Thyroid disorder Other Arthritis Surgical History History of right knee surgery History of total left knee replacement History of varicose vein stripping Social History Smoking Status: Never smoker alcohol intake: current alcohol intake frequency: holidays/special occasions only substance use type: does not use what type of physical activity do you participate in: walking and bicycling frequency: daily duration: 30-45 minutes/day ROS ROS ED Constitutional Constitutional ED: Denies chills or fever(s) Eyes Eyes: Denies change in vision or diplopia ENT ENT ED: Denies rhinorrhea or sore throat Cardiovascular Cardiovascular: Reports chest pain; Denies leg edema, orthopnea, palpitations or paroxysmal nocturnal dyspnea Respiratory/Chest Respiratory/Chest: Reports cough and dyspnea on exertion; Denies orthopnea, paroxysmal nocturnal dyspnea or sputum Gastrointestinal Gastrointestinal: Denies abdominal pain, diarrhea, nausea or vomiting Genitourinary Genitourinary ED: Denies dysuria or hematuria Musculoskeletal Musculoskeletal: Denies back pain or neck pain Integumentary Denies abscess or rash Neurologic Neurologic: Denies headache(s), paresthesias or weakness Psychiatric Psychiatric: Denies anxiety or suicidal thoughts EXAM Physical Exam Const Vital Signs: 06/02/23 09:05 06/02/23 09:15 06/02/23 09:16 Temperature 97.9 F Temperature Source Temporal Pulse Rate 89 97 Respiratory Rate 20 H 24 H Respiratory Effort Normal Non-Labored Respiratory Pattern Normal Blood Pressure 167/128 H 154/128 H Blood Pressure Mean 141 136 Pulse Ox 98 98 Oxygen Delivery Method Room Air Room Air 06/02/23 09:27 06/02/23 10:13 06/02/23 10:55 Temperature Temperature Source Pulse Rate 74 72 Respiratory Rate 18 Respiratory Effort Respiratory Pattern Blood Pressure 156/116 H 137/99 H Blood Pressure Mean 129 111 Pulse Ox 98 95 Oxygen Delivery Method Room Air Room Air 06/02/23 12:37 Temperature Temperature Source Pulse Rate 78 Respiratory Rate 16 Respiratory Effort Respiratory Pattern Blood Pressure 196/118 H Blood Pressure Mean 144 Pulse Ox 95 Oxygen Delivery Method Room Air Positive well nourished and well developed General Appearance ED: well developed and NAD HEENT Reports moist mucous membranes normocephalic and atraumatic Eyes PERRL and EOMs intact bilaterally Neck full ROM, supple and no JVD Resp normal respiratory effort and clear to auscultation bilaterally Cardio regular rate, regular rhythm and no murmurs Rate: Negative for tachycardic GI non-tender and non-distended Auscultation: normoactive bowel sounds Palpation: soft Back/Spine no CVA tenderness General Back: other FROM Extremity normal to inspection General Extremety ED: Negative for edema, pulses abnormal or tenderness General Extremity: Negative for edema or pulses abnormal Neuro oriented x3, CN's II-XII intact bilaterally and no sensory deficits noted Sensorium / Orientation: awake and alert Motor Exam: strength 5/5 throughout Psych Mood & Affect: anxious Skin no rashes or lesions noted and no wounds MDM MDM MDM Narrative Medical decision making narrative: Work-up is broad here including cardiac etiologies such as acute coronary syndrome, pericardial effusion although she does not have clinical findings of tamponade, pulmonary embolus, pneumonia, pleural effusion, congestive heart failure, anemia. This is not an exclusive list. EKG is unremarkable, chest x-ray 2 views of mitral rotation normal, and the blood work really is unremarkable except for the D-dimer which is significantly elevated. Therefore CT angiography was sought, patient has IV contrast on her allergy list. I asked her about it, she states it simply caused stomach upset nausea, she did not have true anaphylactic symptoms such as dyspnea, hives. She was okay getting it with Zofran prophylaxis, so this was done and she had no adverse effects from the contrast. I reviewed the imaging, the report, as well as speaking to the radiologist given that she has diffuse bilateral pulmonary emboli without involvement of the saddle. Surprisingly she has no radiographic or ancillary evidence of right heart strain. I ambulated her with pulse oximetry, she did not go below 94-96%, limited only by her dyspnea. Given all of this, I believe she is stable for outpatient treatment. She does not have a resting tachycardia. She does not have symptoms at rest. She was given a 24-hour dose of Lovenox here, to give her enough time to fill Eliquis today and start it tomorrow morning, close outpatient follow-up advised. Etiology of this is unknown. Lab Data Attestation: I reviewed the patient's lab results. Labs: Laboratory Results - last 24 hr 06/02/23 09:25 WBC 6.5 RBC 5.29 Hgb 15.6 H Hct 48.3 H MCV 91.3 MCH 29.5 MCHC 32.3 RDW Std Deviation 46.7 H RDW Coeff of Gen 14.0 Plt Count 221 MPV 11.2 Immature Gran % (Auto) 0.500 Neut % (Auto) 66.8 Lymph % (Auto) 22.0 [place] % (Auto) 7.8 Eos % (Auto) 2.1 Baso % (Auto) 0.8 Absolute Neuts (auto) 4.4 Absolute Lymphs (auto) 1.44 Nucleated RBC % 0 D-Dimer Quant (PE/DVT) 10.16 H* Sodium 138 Potassium 3.6 Chloride 103 Carbon Dioxide 28.0 Anion Gap 7 BUN 13 Creatinine 1.11 H Estim Creat Clear Calc 44.21 Est GFR (MDRD) Af Amer 64 Est GFR (MDRD) Non-Af 53 L BUN/Creatinine Ratio 11.7 Glucose 130 H Calcium 10.0 Troponin I High Sens 8 B-Natriuretic Peptide 30.0 Radiography Chest X-Ray - ED: 2 View, Read by ED Physician, No Acute Disease and No Infiltrates Diagnostic Testing: Clinical Impression(s) from Imaging Studies Chest X-Ray 06/02/23 09:38 IMPRESSION: Hiatal hernia. The lungs are clear. Electronically Signed: Denver Jacobs MD at 10:05 EDT , Chest CTA 06/02/23 10:04 IMPRESSION: Extensive diffuse bilateral pulmonary emboli involving multiple branches bilaterally as well as the distal aspects of the right and left pulmonary arteries. N.B. : The above Results were Read Back by Denver Jacobs MD to Paco Boyd MD, and understanding confirmed on 06/02/2023 11:00:20 (ET). Electronically Signed: Denver Jacobs MD at 11:01 EDT , ADDENDUM: 06/02/23 1108 IMPRESSION: Extensive diffuse bilateral pulmonary emboli involving multiple branches bilaterally as well as the distal aspects of the right and left pulmonary arteries. N.B. : The above Results were Read Back by Denver Jacobs MD to Paco oByd MD, and understanding confirmed on 06/02/2023 11:00:20 (ET). Electronically Signed: Denver Jacobs MD at 11:01 EDT , Rhythm Strip Rhythm Strip: Sinus Rhythm Rate: 90 Ectopy: None EKG Initial EKG: Attestation: I personally reviewed and interpreted this EKG as follows: Interpretation: Sinus Rhythm and No Acute Injury Pattern Comments: occ PAC Prior EKG tracings: available for review Prior: Unchanged Management Discussion w/another healthcare provider: Radiologist Discharge Plan Triage Chief Complaint: Hypertension ED Provider: Paco Boyd Dx/Rx/DC Orders Clinical Impression: Pulmonary embolism Instructions: Embolism Pulmonary Dc Prescriptions: New Eliquis DVT-PE Treat 30D Start 5 mg (74 tabs) tablets,dose pack 5 mg PO BID Qty: 74 0RF Rx Instructions: use as directed Continued krill oil 500 mg capsule 500 mg PO DAILY tramadol 50 mg tablet 50 mg PO Q12H PRN (Reason: pain) Qty: 14 0RF metoprolol succinate 25 mg tablet extended release 24 hr 25 mg PO DAILY Qty: 90 3RF diphenhydramine HCl 25 MG tablet 25 mg PO QHS acetaminophen 500 MG tablet 1,000 mg PO Q8 Qty: 90 0RF omeprazole 40 mg capsule,delayed release(DR/EC) 40 mg PO BID Qty: 180 3RF albuterol sulfate [Ventolin HFA] 90 mcg/actuation HFA aerosol inhaler 2 puff INHALATION Q6H PRN (Reason: shortness of breath or wheezing) Qty: 8.5 2RF potassium chloride 20 mEq tablet extended release 20 meq PO BID Qty: 180 3RF hydrochlorothiazide 25 mg tablet 25 mg PO DAILY Qty: 90 3RF losartan 50 mg tablet 50 mg PO DAILY Qty: 90 3RF baclofen 10 mg tablet See Rx Instructions .ROUTE .COMPLEX Qty: 30 2RF Dose Instruction: take 1 tablet by mouth at bedtime if needed for muscle spasm Rx Instructions: take 1 tablet by mouth at bedtime if needed for muscle spasm escitalopram oxalate 5 mg tablet See Rx Instructions .ROUTE .COMPLEX Qty: 90 3RF Dose Instruction: TAKE 1 TABLET BY MOUTH DAILY Rx Instructions: TAKE 1 TABLET BY MOUTH DAILY alprazolam 0.25 mg tablet 0.25 mg PO QHS PRN (Reason: sleep) Qty: 30 0RF Discontinued aspirin 81 mg tablet,chewable 81 mg PO DAILY Primary Care Provider: Chauncey Dale Referrals: Chauncey Dale MD [Primary Care Provider] - As soon as possible Disposition Disposition: Home, Self Care
[2023-06-02 09:31] LABS: Absolute Lymphocyte Count 1.44 X10^3/uL (0.83-4.51); Absolute Neutrophil Count 4.4 X10^3/uL (2.0-7.7); Basophil# 0.05 X10^3/uL; Basophil% 0.8 % (0-1); Eosinophil# 0.14 X10^3/uL; Eosinophils% 2.1 % (0-5); Hematocrit 48.3 % (37-47); Hemoglobin 15.6 g/dL (12.0-15.0); Lymphocyte # 1.44 X10^3/ul (0.83-4.51); Mean Corp Hgb Conc 32.3 g/dL (32-36); Mean Corpuscular Hgb 29.5 pg (27.0-32.0); Mean Corpuscular Volume 91.3 fL (81-99); Mean Platelet Vol. 11.2 fl (6.2-12.0); Monocyte# 0.51 X10^3/uL; Monocyte% 7.8 % (0-10); NRBC Flagged by Analyzer 0 % (0-5); Neutrophil # 4.37 X10^3/uL (2.7-7.7); Neutrophil % 66.8 % (47-70); Platelet Count 221 K/mm3 (150-450); RBC Distribution Width SD 46.7 fl (35.1-43.9); Red Blood Count 5.29 M/mm3 (4.2-5.4); White Blood Count 6.5 K/mm3 (4.4-11.0)
--- NOTE | 2023-06-02 09:38 | RAD_ITS ---
STUDY: X-RAY CHEST REASON FOR EXAM: Female, 63 years old. Sob, cp TECHNIQUE: PA and lateral views of the chest. COMPARISON: Comparison is made with prior study May 20, 2023. FINDINGS: EKG electrodes are seen. The lungs are clear and expanded. There is no demonstrated pleural abnormality. Normal size heart. Normal mediastinum and kumar. Normal visualized pulmonary arteries. There is atherosclerotic tortuosity of the aortic arch and descending thoracic aorta. There are diffuse degenerative changes of the visualized thoracic spine. Normal visualized ribs, clavicles, and shoulders. Moderate-sized hiatal hernia. RAD/Chest PA and Lateral IMPRESSION: Hiatal hernia. The lungs are clear. Electronically Signed: Denver Jacobs MD at 10:05 EDT ,
[2023-06-02 09:49] LABS: Anion Gap 7 (5-15); BUN 13 mg/dL (7-18); BUN/Creat Ratio 11.7 RATIO (10-20); Chloride 103 mmol/L (98-107); Creatinine, Serum 1.11 mg/dL (0.55-1.02); EST Glomerular Filtration Rate 53 mL/min (>60); Est Glom Filt Rate - Afr Amer 64 mL/min (>60); Estimated Creatinine Clearance 44.21 ml/min; Glucose 130 mg/dL (74-106); Potassium 3.6 mmol/L (3.5-5.1); Sodium Level 138 mmol/L (136-145); Troponin-I HS 8 pg/mL (3.0-54.0)
[2023-06-02 09:56] LABS: D-Dimer Quantitative (DVT/PE) 10.16 FEU/ug/m (0.27-0.49)
--- NOTE | 2023-06-02 10:04 | CT_ITS ---
STUDY: CTA CHEST REASON FOR EXAM: Female, 63 years old. sob, elevated d-dimer RADIATION DOSAGE (If Supplied By Facility): CTDIvol = ( 13.12 ) mGy, DLP = ( 457.41 ) mGycm TECHNIQUE: The examination was performed with the intravenous administration of IV 100mL Isovue-370. Post-processing of the angiographic images was performed, with multiplanar reformation and 3D reconstruction. Individualized dose optimization techniques were used for this CT. COMPARISON: None. FINDINGS: Multiple bilateral pulmonary emboli are seen. Large pulmonary emboli are seen in the distal portion of the left main and right main pulmonary arteries. Multiple intraluminal filling defects are seen throughout the branches of both the right and left pulmonary arteries. Normal thoracic aorta and visualized great vessels. There is no demonstrated aortic dissection. There are calcifications of the coronary arteries. Normal mediastinum. Normal hilar regions. Normal visualized trachea and bronchi. The lungs are well expanded. Normal pulmonary parenchyma. Normal pleura. Normal chest wall structures. There are degenerative changes of thoracic spine. Chest Moderate-sized hiatal hernia. CT/CTA Chest W/WO Contrast IMPRESSION: Extensive diffuse bilateral pulmonary emboli involving multiple branches bilaterally as well as the distal aspects of the right and left pulmonary arteries. N.B. : The above Results were Read Back by Denver Jacobs MD to Paco Boyd MD, and understanding confirmed on 06/02/2023 11:00:20 (ET). Electronically Signed: Denver Jacobs MD at 11:01 EDT ,
[2023-06-02] MEDS: Ondansetron 4 MG/2 ML Vial IV (10:12)
[2023-06-02] MEDS: Enoxaparin 150 MG/ML Syringe SC (11:18)
== END 2023-06-02 13:12 | disposition home or self-care (01) ==
PROVIDERS: Emergency Provider Emergency Medicine; PCP Internal Medicine; Visit Provider Emergency Medicine
DX: I26.99 Other pulmonary embolism without acute cor pulmonale (principal); R06.00 Dyspnea, unspecified
CPT/HCPCS: 71046; 71275; 80048; 83880; 84484; 85025; 85379; 93005; 96372; 96374; 99283; Q9967; A4216; J2405

== ENCOUNTER → 2023-06-13 | Outpatient (CLI) | payer OTHER, SELFPAY | END | disposition home or self-care (01) | LOC: LABSPEC 14:28 | PROVIDERS: PCP Internal Medicine; Visit Provider Internal Medicine Medical Oncology | DX: Z12.11 Encounter for screening for malignant neoplasm of colon (principal) | CPT/HCPCS: 82274 ==

== ENCOUNTER → 2023-06-17 | Outpatient (CLI) | payer OTHER, SELFPAY ==
[2023-06-17 16:45] LABS: International Normalized Ratio 1.1; Prothrombin Time (Protime)PT. 14.4 SECONDS (11.7-14.9)
[2023-06-17 16:56] LABS: D-Dimer Quantitative (DVT/PE) 1.58 FEU/ug/m (0.27-0.49)
[2023-06-17 22:51] LABS: Xtra Tube EP Lab EXTRA TUBE
== END | disposition home or self-care (01) ==
LOC: BIMLAB 14:50
PROVIDERS: PCP Internal Medicine; Referring Provider Internal Medicine Medical Oncology; Visit Provider Internal Medicine Medical Oncology
DX: I26.99 Other pulmonary embolism without acute cor pulmonale (principal); Z79.01 Long term (current) use of anticoagulants
CPT/HCPCS: 36415; 85379; 85610; 85730

== ENCOUNTER → 2023-09-22 | Outpatient (CLI) | payer OTHER, SELFPAY ==
--- OUTSIDE RECORDS SUMMARY | 2023-09-22 10:16 | XMS RPT_ITS | CCD ---
Author Name Unknown Address [address] [place] [address] Organization [facility] Care Team Providers Care [employer] Tech Name Role Phone MELANY JEAN BAPTISTE Unavailable Unavailable GLENN GREGORY Unavailable Unavailable MELANY JEAN BAPTISTE Unavailable Unavailable MELANY JEAN BAPTISTE Unavailable SHAN Vasquez MD Primary Care Physician MIKE PACHECO MD Attending Unavailable SHAN WINTERS MD Primary Care UnavailMELISSA Doran Attending Unavailable SHAN WINTERS MD Primary Care Unavailab nunez Allergies Allergy Classification Reported Allergen(s) Allergy Type Date of Onset Reaction(s) Facility (2 sources) ciprofloxacin; Translations: [CIPROFLOXACIN] Drug Allergy 03-05-2011 [facility] (1 source) codeine; Translations: [CODEINE] Drug Allergy 03-05-2011 [facility] (1 source) lisinopril; Translations: [LISINOPRIL] Drug Allergy 03-05-2011 [facility] Medications Current Medications Medication Drug Class(es) Dates Sig (Normalized) Sig (Original) ALPRAZolam 0.25 mg oral tablet (1 source) Benzodiazepine Start: 02-26-20 Xanax 0.25 mg oral tablet Dose : 0.25 mg = 1 tab(s), Oral, TID, PRN for anxiety, 0 Refill(s) Start Date: 02/25/18 Status: Ordered hydroCHLOROthiazide 12.5 mg oral tablet (1 source) Thiazide Diuretic Start: 02-26-20 hydroCHLOROthiazide 12.5 mg oral tablet Dose : 12.5 mg = 1 tab(s), Oral, qAM, 0 Refill(s) Start Date: 02/25/18 Status: Ordered SUMAtriptan 100 mg oral tablet (1 source) Serotonin-1b and Serotonin-1d Receptor Agonist Start: 02-26-20 Imitrex 100 mg oral tablet Dose : 100 mg = 1 tab(s), Oral, qDay, PRN Migraine headache Start Date: 02/25/18 Status: Ordered traMADol hydrochloride 50 mg oral tablet (1 source) Opioid Agonist Start: 02-26-20 traMADol 50 mg oral tablet Dose : 50 mg = 1 tab(s), Oral, qHS, 0 Refill(s) Start Date: 02/25/18 Status: Ordered Completed/Discontinued Medications Medication Drug Class(es) Dates Sig (Normalized) Sig (Original) 24 hr metoprolol succinate 25 mg extended release oral tablet (1 source) beta-Adrenergic Aime Start: 03-24-2019 End: 03-18-2020 Toprol-XL 25 mg oral tablet, extended release Dose : 25 mg = 1 tab(s), Oral, qDay, # 90 tab(s), 3 Refill(s), Pharmacy: [facility] Start Date: 03/24/19 Stop Date: 03/18/20 Status: Ordered potassium chloride 20 meq oral tablet (1 source) Start: 03-24-2019 End: 03-18-2020 potassium chloride 20 mEq oral tablet, extended release Dose : 20 mEq = 1 tab(s), Oral, BID, # 180 tab(s), 3 Refill(s), Pharmacy: [facility] Start Date: 03/24/19 Stop Date: 03/18/20 Status: Ordered promethazine hydrochloride 25 mg oral tablet (1 source) Phenothiazine Start: 05-10-2022 End: 05-13-2022 promethazine 25 mg oral tablet Dose : 25 mg = 1 tab(s), Oral, q6h, # 12 tab(s), 0 Refill(s), Elbow fracture Start Date: 05/10/22 Stop Date: 05/13/22 Status: Ordered Problems Problem Classification Problem Date Documented Da te Episodic/Chronic Essential hypertension (1 source) Essential (primary) hypertension; Translations: [Essential (primary) hypertension] Onset: 04-01-2018 Chronic Nonspecific chest pain (1 source) Chest pain, unspecified; Translations: [Chest pain, unspecified] Onset: 04-01-2018 Episodic Results Test Name Value Interpretation Reference Range Facil ity Encounters Encounter Date Encounter Type Care Provider Facility Start: 06-12-2023 End: 06-13-[facility] Start: 06-12-2023 End: 06-12-2023 Patient encounter procedure MIKE PACHECO MD [facility] Start: 04-17-2018 End: 04-17-2018 Patient encounter MELANY JEAN BAPTISTE [facility] Start: 04-01-2018 End: 04-01-2018 Patient encounter MELANY Sherine I[facility] Procedures Date Procedure Procedure Detail Performing Clinician Hypertensive disorde r, systemic arterial (disorder) MIKE PACHECO MD Irregular heart beat (finding) MIKE PACHECO MD Knee pain (finding) MIKE BOSWELL MD Payers Date Payer Category Payer Unknown [id number] 1960 Unknown [id number] 1960 Unknown [id number] Social History Date Type Detail Facility Tobacco smoking status Never smo ked tobacco (finding) [facility] Sex Assigned At Female [facility] Evaluation + Plan note Note Date & Type Note Facility Evaluation + Plan note No data available for this section [facility] Hospital Discharge instructions Note Date & Type Note Facility Hospital Discharge instructions No data available for this section [facility] Progress note Note Date & Type Note Facility Progress note No data available for this section [facility] Summary Purpose Family History No Family History Records Found No data available for this section No Family History Records Found Advance Directives No Advanced Directives Records FoundNo Advanced Directives Records Found Additional Source Comments INFORMATION SOURCE (unrecogn ized section and content) DATE CREATED AUTHOR AUTHOR'S STEPHANY CORREA 06/25/2023 [facility] ([place] Patient Care team informatio n (unrecognized section and content) Care Team Personnel Name: SHAN WINTERS MD Member Role: Primary Care Physician Address: Address: [address] [place] [address] Care Team Related Persons Name: ANGELINA MORRISON Name: angelina MORRISON Name: KUNAL MORALES Address: [address] FOR RECORDS PERTAINING TO PATIENTS WHO ARE OR HAVE BEEN ENROLLED IN A CHEMICAL DEPENDENCY/SUBSTANCEABUSE PROGRAM, SOME INFORMATION MAY BE OMITTED. This clinical summary was aggregated from multiple sources. Caution should be exercised in using it in the provision of clinical care. This summary normalizes information from multiple sources, and as a consequence, information in this document may materially change the coding, format and clinical context of patient data. In addition, data may be omitted in some cases. CLINICAL DECISIONS SHOULD BE BASED ON THE PRIMARY CLINICAL RECORDS. [facility] [employer] [facility]. provides no warranty or guarantee of the accuracy or completeness of information in this document.
[2023-09-22 13:25] LABS: Anion Gap 9 (5-15); BUN 18 mg/dL (7-18); BUN/Creat Ratio 18.8 RATIO (10-20); Chloride 104 mmol/L (98-107); Creatinine, Serum 0.96 mg/dL (0.55-1.02); EST Glomerular Filtration Rate 62 mL/min (>60); Est Glom Filt Rate - Afr Amer 75 mL/min (>60); Glucose 89 mg/dL (74-106); Potassium 3.7 mmol/L (3.5-5.1); Sodium Level 139 mmol/L (136-145)
== END | disposition home or self-care (01) ==
LOC: BIMLAB 09:47
PROVIDERS: PCP Internal Medicine; Referring Provider Internal Medicine; Visit Provider Internal Medicine
DX: I10 Essential (primary) hypertension (principal)
CPT/HCPCS: 36415; 80048

== ENCOUNTER → 2023-09-30 | Outpatient (CLI) | payer OTHER, SELFPAY ==
--- NOTE | 2023-09-30 09:01 | RAD_ITS ---
STUDY: X-RAY - UNILATERAL RIBS ( LEFT ) WITH CHEST REASON FOR EXAM: Female, 63 years old. Fall TECHNIQUE - RIBS: 4 view(s) of the ribs. TECHNIQUE - CHEST: Single PA view of the chest. COMPARISON: Comparison is made with prior chest radiograph dated June 02, 2023. FINDINGS - RIBS: Normal visualized ribs without a demonstrated fracture. FINDINGS - CHEST: The lungs are clear and expanded. Scattered calcified granulomas. There is no demonstrated pleural abnormality. Normal size heart. Normal mediastinum and kumar. Normal visualized pulmonary arteries. There is atherosclerotic tortuosity of the aortic arch and descending thoracic aorta. There are degenerative changes of the visualized thoracic spine. Normal visualized ribs, clavicles, and shoulders. Hiatal hernia. RAD/Ribs Uni Min 3V w/PA Chest IMPRESSION: RIBS: Normal x-ray examination of the ribs. CHEST: Normal x-ray examination of the chest. Electronically Signed: Denver Jacobs MD at 9:57 EST ,
--- OUTSIDE RECORDS SUMMARY | 2023-09-30 09:32 | XMS RPT_ITS | CCD ---
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 Name Role Phone MELANY JEAN BAPTISTE Unavailable Unavailable GLENN GREGORY Unavailable Unavailable MELANY JEAN BAPTISTE Unavailable Unavailable MELANY JEAN BAPTISTE Unavailable SHAN Vasquez MD Primary Care Physician [phone] MIKE PACHECO MD Attending Unavailable SHAN WINTERS MD Primary Care UnavailMELISSA Doran Attending Unavailable SHAN WINTERS MD Primary Care Unavailab nunez Allergies Allergy Classification Reported Allergen(s) Allergy Type Date of Onset Reaction(s) Facility (2 sources) ciprofloxacin; Translations: [CIPROFLOXACIN] Drug Allergy 03-05-2011 [facility] Repository (1 source) codeine; Translations: [CODEINE] Drug Allergy 03-05-2011 [facility] Repository (1 source) lisinopril; Translations: [LISINOPRIL] Drug Allergy 03-05-2011 [facility] Repository Medications Current Medications Medication Drug [...] qDay, # 90 tab(s), 3 Refill(s), Pharmacy: [facility] Start Date: 03/24/19 Stop Date: 03/18/20 Status: Ordered potassium chloride 20 meq oral tablet (1 source) Start: 03-24-2019 End: 03-18-2020 potassium chloride 20 mEq oral tablet, extended release Dose : 20 mEq = 1 tab(s), Oral, BID, # 180 tab(s), 3 Refill(s), Pharmacy: [facility] Start Date: 03/24/19 Stop Date: [...] Provider Facility Start: 06-12-2023 End: 06-13-2023 ambulatory [facility] Facility:[facility] Start: 06-12-2023 End: 06-12-2023 Patient encounter procedure MIKE PACHECO MD [facility] Start: 04-17-2018 End: 04-17-2018 Patient encounter MELANY JEAN BAPTISTE [facility] Start: 04-01-2018 End: 04-01-2018 Patient encounter MELANY Sherine [facility] Procedures Date Procedure Procedure Detail Performing Clinician Hypertensive disorde r, systemic arterial (disorder) MIKE PACHECO MD Irregular heart beat (finding) MIKE PACHECO MD Knee pain (finding) MIKE BOSWELL MD Payers Date Payer Category Payer Unknown [id number] 1960 Unknown [id number] 1960 Unknown [id number] Social History Date Type Detail Facility Tobacco smoking status Never smo ked tobacco (finding) [facility] Sex Assigned At Female [facility] Evaluation + Plan note Note Date & Type Note Facility Evaluation + Plan note No data available for this section [facility] Hospital Discharge instructions Note Date & Type Note Facility Hospital Discharge instructions No data available for this section [facility] Progress note Note Date & Type Note Facility Progress note No data available for this section [facility] Summary Purpose Family History No Family History Records Found No data available for this section No Family History Records Found Advance Directives No Advanced Directives Records FoundNo Advanced Directives Records Found Additional Source Comments INFORMATION SOURCE (unrecogn ized section and content) DATE CREATED AUTHOR AUTHOR'S STEPHANY CORREA 06/25/2023 [facility] ([place] Patient Care team informatio n (unrecognized section and content) Care Team Personnel Name: SHAN WINTERS MD Member Role: Primary Care Physician Address: Address: [address] [place] [address] Care Team Related Persons Name: ANGELINA MORRISON Name: angelina MORRISON Name: KUNAL MORALES Address: [address] FOR RECORDS PERTAINING TO PATIENTS WHO [...] BE BASED ON THE PRIMARY CLINICAL RECORDS. [facility] [employer] [facility] provides no warranty or guarantee of the accuracy or completeness of information in this document.
== END | disposition home or self-care (01) ==
LOC: MTRAD 09:01
PROVIDERS: PCP Internal Medicine; Referring Provider Physician Assistant; Visit Provider Physician Assistant
DX: Z04.3 Encounter for examination and observation following other accident (principal); W19.XXXA Unspecified fall, initial encounter
CPT/HCPCS: 71101

== ENCOUNTER → 2023-12-12 | Outpatient (CLI) | payer MEDICARE, SELFPAY ==
[2023-12-12 15:08] LABS: Absolute Lymphocyte Count 1.78 X10^3/uL (0.83-4.51); Absolute Neutrophil Count 2.4 X10^3/uL (2.0-7.7); Basophil# 0.04 X10^3/uL; Basophil% 0.8 % (0-1); Eosinophil# 0.13 X10^3/uL; Eosinophils% 2.7 % (0-5); Hematocrit 37.9 % (37-47); Hemoglobin 12.8 g/dL (12.0-15.0); Lymphocyte # 1.78 X10^3/ul (0.83-4.51); Lymphocyte % 37.4 % (19-41); Mean Corp Hgb Conc 33.8 g/dL (32-36); Mean Corpuscular Hgb 31.4 pg (27.0-32.0); Mean Corpuscular Volume 93.1 fL (81-99); Mean Platelet Vol. 12.1 fl (6.2-12.0); Monocyte# 0.41 X10^3/uL; Monocyte% 8.6 % (0-10); NRBC Flagged by Analyzer 0 % (0-5); Neutrophil # 2.39 X10^3/uL (2.7-7.7); Neutrophil % 50.3 % (47-70); Platelet Count 260 K/mm3 (150-450); RBC Distribution Width CV 12.8 % (11.6-14.6); RBC Distribution Width SD 43.8 fl (35.1-43.9); Red Blood Count 4.07 M/mm3 (4.2-5.4); White Blood Count 4.8 K/mm3 (4.4-11.0)
[2023-12-12 15:20] LABS: International Normalized Ratio 1.1; Partial Thromboplast Time 25.8 Seconds (24.1-36.2); Prothrombin Time (Protime)PT. 14.2 SECONDS (11.7-14.9)
[2023-12-12 15:32] LABS: AST(SGOT) 29 U/L (15-37); Alanine Aminotransfer ALT/SGPT 31 U/L (13-56); Albumin, Serum 3.5 g/dL (3.2-5.0); Alkaline Phosphatase 101 U/L (45-117); Anion Gap 9 (5-15); BUN 13 mg/dL (7-18); BUN/Creat Ratio 11.4 RATIO (10-20); Calcium,Total 9.1 mg/dL (8.5-10.1); Chloride 105 mmol/L (98-107); Creatinine, Serum 1.14 mg/dL (0.55-1.02); EST Glomerular Filtration Rate 51 mL/min (>60); Est Glom Filt Rate - Afr Amer 62 mL/min (>60); Globulin 3.4 g/dL (2.2-4.2); Glucose 144 mg/dL (74-106); LDH 242 U/L (84-246); Potassium 3.3 mmol/L (3.5-5.1); Protein, Total 6.9 g/dL (6.4-8.2); Sodium Level 137 mmol/L (136-145)
[2023-12-12 15:51] LABS: D-Dimer Quantitative (DVT/PE) < 0.27 FEU/ug/m (0.27-0.49)
[2023-12-12 21:00] LABS: Xtra Tube EP Lab EXTRA TUBE
== END | disposition home or self-care (01) ==
LOC: BIMLAB 12:59
PROVIDERS: PCP Internal Medicine; Visit Provider Internal Medicine Medical Oncology
DX: Z79.01 Long term (current) use of anticoagulants (principal); Z86.711 Personal history of pulmonary embolism
CPT/HCPCS: 36415; 80053; 83615; 85025; 85379; 85610; 85730

== ENCOUNTER → 2024-01-08 | Outpatient (CLI) | payer MEDICARE, SELFPAY ==
--- NOTE | 2024-01-08 12:52 | BD_ITS ---
STUDY: DUAL ENERGY X-RAY ABSORPTIOMETRY / DXA REASON FOR EXAM: Female, 64 years old. Postmenopausal TECHNIQUE: Bone Mineral Density (BMD) measurements of lumbar spine and bilateral hips were obtained. COMPARISON: None. FINDINGS: Lumbar Spine (L1-L4): g/cm2 (0.767) / T-score (-2.6) / Z-score (-0.8) Findings are suggestive of osteoporosis with a high fracture risk. Left Femur Total: g/cm2 (0.709) / T-score (-1.9) / Z-score (-0.7) Left Femoral Neck: g/cm2 (0.500) / T-score (-3.1) / Z-score (-1.6) Right Femur Total: g/cm2 (0.668) / T-score (-2.2) / Z-score (-1.0) Right Femoral Neck: g/cm2 (0.537) / T-score (-2.8) / Z-score (minus 1.) BD/Dexa Bone Density Study IMPRESSION: The patient is considered osteoporotic as outlined below according to [employer] Organization (WHO) criteria with a high fracture risk. Reference Information: The T-score is the number of standard deviations above or below the standard which is normal for young adults at their peak bone mineral density. The World Health Organization (WHO) interprets the T-scores as follows: Above -1 Normal bone density Between -1 and -2.5 Osteopenia Equal to / or below -2.5 Osteoporosis As a practical clinical guideline, osteopenia may be graded as follows: Mild -1 through -1.5 Moderate -1.6 through -2.0 Severe -2.1 through -2.4 The Z-score is the number of standard deviations above or below age-matched controls. A Z-score of less than -1.5 would be considered abnormal. References: 1. NIH Osteoporosis and Related Bone Diseases www osteo.org 2. International Society for Clinical Densitometry www iscd.org 3. National Osteoporosis Foundation www nof.org Electronically Signed: Denver Jacobs MD at 15:12 EDT ,
--- NOTE | 2024-01-08 12:52 | BI_ITS ---
MAMMOGRAPHY - BILATERAL SCREENING REASON FOR EXAM: Female, 63 years old. Routine annual screening examination. PERTINENT HISTORY: Aunt with breast cancer. TECHNIQUE: Digital bilateral breast leonidas (3D mammographic acquisition) in the CC and MLO projections. 2-D mediolateral oblique (MLO) and craniocaudad (CC) views of both breasts were obtained. CAD: Full Field Digital Mammography with Computer Added Detection was performed. COMPARISON: Comparison is made with prior study dated September 27, 2022. FINDINGS: Breast Composition: There are scattered areas of fibroglandular density. There are no dominant masses or suspicious calcifications. No other significant abnormalities are identified. There has been no significant change since the prior study. BI/SCRN MAMM (CAD)W/LEONIDAS BILAT IMPRESSION: Stable bilateral screening mammogram. Yearly follow-up mammogram recommended. (A) ASSESSMENT CATEGORY: BIRADS Category 1: Negative. A letter regarding these results will be sent to the patient by the facility within 30 days. Approximately 10% of breast cancers are not detected by mammography. A normal mammogram should not delay biopsy of a clinically suspicious abnormality. [id number] Electronically Signed: Denver Jacobs MD at 14:14 EDT ,
== END | disposition home or self-care (01) ==
PROVIDERS: PCP Internal Medicine; Referring Provider Internal Medicine Medical Oncology; Visit Provider Internal Medicine Medical Oncology
DX: Z12.31 Encounter for screening mammogram for malignant neoplasm of breast (principal); Z78.0 Asymptomatic menopausal state; Z80.3 Family history of malignant neoplasm of breast
CPT/HCPCS: 77063; 77067; 77080

== ENCOUNTER → 2024-01-22 | Outpatient (CLI) | payer MEDICARE, SELFPAY ==
--- NOTE | 2024-01-22 07:42 | ECHOD_ITS ---
Reason For Study: SOB Procedure This was a 2D Doppler, Color Flow transthoracic echocardiogram. Exam performed in department. Left Ventricle Normal LV size. Mild concentric left ventricular hypertrophy. Left ventricular systolic function is normal. The estimated ejection fraction is 60 %. Stage 1 diastolic dysfunction. No regional wall motion abnormalities noted. Right Ventricle Normal RV size. Normal systolic function. Atria Normal left atrium. Normal right atrium. Mitral Valve Mild diffuse mitral valve thickening. Mild (1+) eccentric mitral valve insufficiency. Tricuspid Valve Normal tricuspid valve. Mild (1+) tricuspid valve insufficiency. Pulmonary artery systolic pressure is 30 mmHg. Aortic Valve Trisinus/trileaflet aortic valve. Mild focal aortic valve calcification. Pulmonic Valve Normal pulmonic valve. Great Vessels Normal aortic root. The pulmonary artery is normal size. Normal inferior vena cava. Pericardium/Pleural No pericardial effusion. MMode/2D Measurements & Calculations LVIDd: 3.7 cm IVSd: 1.4 cm Ao root diam: 3.8 cm LVIDs: 2.7 cm LVPWd: 1.3 cm RVDd: 3.6 cm FS: 27.8 % LAV(MOD-bp): 59.0 ml LVAd ap4: 26.8 cm2 SV(MOD-sp4): 50.2 ml LAV(MOD-bp) Indexed: 29.3 ml/m2 LVLd ap4: 8.2 cm LAV(MOD-sp2): 60.7 ml EDV(MOD-sp4): 71.4 ml LAV(MOD-sp4): 55.3 ml EDV(sp4-el): 74.1 ml LVAs ap4: 12.4 cm2 LVLs ap4: 6.4 cm ESV(MOD-sp4): 21.2 ml ESV(sp4-el): 20.5 ml EF(MOD-sp4): 70.2 % EF(sp4-el): 72.3 % SV(sp4-el): 53.6 ml LA A4 area: 19.8 cm2 LA dimension(2D): 4.0 cm RA A4 area: 11.6 cm2 TAPSE: 1.8 cm Time Measurements MV dec time: 0.25 sec Doppler Measurements & Calculations MV E max hossein: 75.8 cm/sec Lat Peak E' Hossein: 9.5 cm/sec Med Peak E' Hossein: 5.5 cm/sec MV A max hossein: 91.4 cm/sec E/E' lat: 8.0 E/E' med: 13.8 MV E/A: 0.83 MV V2 max: 88.3 cm/sec Ao V2 max: 161.1 cm/sec MV max P.1 mmHg MV dec slope: 300.2 cm/sec2 Ao max P.4 mmHg MV V2 mean: 49.0 cm/sec Ao V2 mean: 112.8 cm/sec MV mean P.1 mmHg Ao mean P.8 mmHg MV V2 VTI: 29.8 cm Ao V2 VTI: 39.3 cm AV (velocity ratio): 0.60 LV V1 max: 109.0 cm/sec PA V2 max: 87.4 cm/sec TR max hossein: 253.6 cm/sec LV V1 max P.8 mmHg PA V2 mean: 54.5 cm/sec TR max P.7 mmHg LV V1 mean P.6 mmHg LV V1 mean: 76.2 cm/sec LV V1 VTI: 23.6 cm ECHO/Echo Complete Interpretation Summary Normal LV size. Left ventricular systolic function is normal. The estimated ejection fraction is 60 %. Mild (1+) eccentric mitral valve insufficiency. Mild concentric left ventricular hypertrophy. Stage 1 diastolic dysfunction. Ordering Physician: Madi Purvis Referring Physician: Madi Purvis Performed By: Madyson Goss RCS
== END | disposition home or self-care (01) ==
PROVIDERS: PCP Internal Medicine; Referring Provider Internal Medicine Medical Oncology; Visit Provider Internal Medicine Medical Oncology
DX: R06.02 Shortness of breath (principal); I26.99 Other pulmonary embolism without acute cor pulmonale
CPT/HCPCS: 93306

== ENCOUNTER → 2024-02-27 | Outpatient (CLI) | payer MEDICARE, SELFPAY ==
[2024-02-27 15:50] LABS: Vitamin D,25 Hydroxy 45.4 ng/mL
[2024-02-27 15:57] LABS: Anion Gap 9 (5-15); BUN 13 mg/dL (7-18); BUN/Creat Ratio 15.7 RATIO (10-20); Calcium,Total 9.1 mg/dL (8.5-10.1); Chloride 100 mmol/L (98-107); Creatinine, Serum 0.83 mg/dL (0.55-1.02); EST Glomerular Filtration Rate 73 mL/min (>60); Est Glom Filt Rate - Afr Amer 89 mL/min (>60); Glucose 101 mg/dL (74-106); Potassium 3.7 mmol/L (3.5-5.1); Sodium Level 133 mmol/L (136-145)
== END | disposition home or self-care (01) ==
LOC: BIMLAB 11:28
PROVIDERS: PCP Internal Medicine; Referring Provider Internal Medicine; Visit Provider Internal Medicine
DX: M81.0 Age-related osteoporosis without current pathological fracture (principal)
CPT/HCPCS: 36415; 80048; 82306

== ENCOUNTER → 2024-06-07 | Outpatient (CLI) | payer MEDICARE, SELFPAY ==
--- OUTSIDE RECORDS SUMMARY | 2024-06-07 09:15 | XMS RPT_ITS | CCD ---
Author Organization [facility] Inform ion Partnership [facility] Care Team Providers Care Entry Level Installation Technician Name Role Phone MELANY JEAN BAPTISTE Unavailable Unavailable GLENN GREGORY Unavailable Unavailable MELANY JEAN BAPTISTE Unavailable Unavailable MELANY JEAN BAPTISTE Unavailable Unavailable SHAN WINTERS MD Primary Care Physician MIKE PACHECO MD Attending Unavailable SHAN WINTERS MD Primary Care Unavailab MELISSA Lacey Attending Unavailable SHAN WINTERS MD Primary Care Unavailab enrique Allergies Allergy Classification Reported Allergen(s) Allergy Type Date of Onset Reaction(s) Facility (2 sources) ciprofloxacin; Translations: [CIPROFLOXACIN] Drug Allergy 03-05-2011 [facility] Repository (1 source) codeine; Translations: [CODEINE] Drug Allergy 03-05-2011 [facility] Repository (1 source) lisinopril; Translations: [LISINOPRIL] Drug Allergy 03-05-2011 [facility] Repository Medications Current Medications Medication Drug Class(es) [...] qDay, # 90 tab(s), 3 Refill(s), Pharmacy: [facility] Start Date: 03/24/19 Stop Date: 03/18/20 Status: Ordered potassium chloride 20 meq oral tablet (1 source) Start: 03-24-2019 End: 03-18-2020 potassium chloride 20 mEq oral tablet, extended release Dose : 20 mEq = 1 tab(s), Oral, BID, # 180 tab(s), 3 Refill(s), Pharmacy: [facility] Start Date: 03/24/19 Stop Date: [...] Results Test Name Value Interpretation Reference Range Facility CT ABDOMEN/PELVIS W/CONTRAST on 06-17-2023 CT ABDOMEN/PELVI S W/CONTRAST ORIGINAL EXAMINATION: CT OF THE ABDOMEN AND PELVIS WITH CONTRAST 06/12/2023 11:16 am TECHNIQUE: CT of the abdomen and pelvis was performed with the administration of intravenous contrast. Multiplanar reformatted images are provided for review. Automated exposure control, iterative reconstruction, and/or weight based adjustment of the mA/kV was utilized to reduce the radiation dose to as low as reasonably achievable. COMPARISON: None. HISTORY: ORDERING SYSTEM PROVIDED HISTORY: Reason for Exam: I26.99 Other pulmonary embolism without acute cor pulmonale Pt had PE 2 weeks ago. No current complaints. R/O malignancy. FINDINGS: Minor degenerative changes are noted in the spine. The lung bases are unremarkable. A small to moderate hiatal hernia is noted. Liver, spleen, adrenal glands and pancreas are unremarkable. No definite kidney abnormality. No adenopathy, free air or free fluid is evident. Solid pelvic organs and urinary bladder are unremarkable. Very minor scattered colonic diverticulosis is present, without diverticulitis. No other GI tract abnormality is visible. Small fat containing umbilical hernia seen. No additional contributory abnormality is evident. IMPRESSION: No definite evidence for abdominal malignancy on this exam. Interpreted by: Roland Mahan MD Preliminary Report By: Roland Mahan MD Electronically signed By Roland Mahan MD Dictated Date: 06/17/2023 8:29:48 AM Prelim Date: 06/17/2023 8:32:00 AM Sign Date: 06/17/2023 8:32:00 AM Ordering Provider: MIKE PACHECO [facility] ([place]) .GFRon 06-12-2023 GFR 74 ml/min/1.73sqm [facility] ([place]) Comment on above: Result Comment: GFR Population mean for , Non- Americans Ages 20-29 = 116 mL/min/1.73 sq.m. Ages 30-39 = 107 mL/min/1.73 sq.m. Ages 40-49 = 99 mL/min/1.73 sq.m. Ages 50-59 = 93 mL/min/1.73 sq.m. Ages 60-69 = 85 mL/min/1.73 sq.m. Ages 70+ = 75 mL/min/1.73 sq.m. Chronic Kidney Disease: Less than 60 mL/min/1.73 square meters End Stage Renal Disease: Less than 15 mL/min/1.73 square meters Performed By: #### G FR, CRE #### [address] [address] GFR Non- 61 ml/min/1.73sqm Normal [facility] ([place]) Comment on above: Result Comment: GFR Population mean for , Non- Americans Ages 20-29 = 116 mL/min/1.73 sq.m. Ages 30-39 = 107 mL/min/1.73 sq.m. Ages 40-49 = 99 mL/min/1.73 sq.m. Ages 50-59 = 93 mL/min/1.73 sq.m. Ages 60-69 = 85 mL/min/1.73 sq.m. Ages 70+ = 75 mL/min/1.73 sq.m. Chronic Kidney Disease: Less than 60 mL/min/1.73 square meters End Stage Renal Disease: Less than 15 mL/min/1.73 square meters Performed By: #### G FR, CRE #### [address] [address] CREon 06-12-2023 Creatinine [Mass/Vol] 0.93 mg/dL Normal 0.55-1.02 [facility] ([place]) Comment on above: Performed By: #### GFR, CRE #### [address] [address] Basic Metabolic Panlon 04-17 Anion gap 3 molar conc 18 mmol/L Normal 9-18 [facility] Comment on above: Performed By: #### BMP ####[address] [place], [place] [phone] Calcium mass conc 9.5 mg/dL Normal 8.5-10.2 [facility] Comment on above: Performed By: #### BMP ####[place] [address] [place], [place] [phone] Chloride molar conc 101 mmol/L Normal 97-105 [facility] Comment on above: Performed By: #### BMP ####[place] [facility], [place] [phone] CO2 molar conc 20 mmol/L Low 22-30 [facility] Comment on above: Performed By: #### BMP ####[facility] [place], [place] [phone] Creatinine mass conc 0.77 mg/dL Normal 0.58-0.96 [facility] Comment on above: Performed By: #### BMP ####[place] [address] [place], [place] [phone] eGFR- Amer. >60 Normal [facility] Comment on above: Performed By: #### BMP ####[place] [address] [address], [place] [phone] GFR/1.73 sq M predicted among non-blacks MDRD vol rate/area (S/P/Bld) mL/min/{1.73_m2} Normal [facility] Comment on above: Result Comment: eGFR (Estimated GFR) Uni ts of measure: mL/min/1.73 meters squaredeGFR is derived from the reexpressed MDRD Study equation using the following parameters: serum creatinine, age, gender and race. The creatinine assay has been calibrated to be traceable to IDMS.An eGFR <60 mL/min/1.73m2 for >3 months is consistent with chronic kidney disease. Refer to KDOQI guidelines for clinical interpretation.In patients with unstable renal function, e.g. those with acute kidney injury, the eGFR may not accurately reflect actual GFR. Performed By: #### B MP ####[place] [address] [address], [place] [phone] Glucose mass conc 92 mg/dL Normal 74-99 [facility] Comment on above: Result Comment: The [place] Diabetes As sociation (ADA) provides guidance for cutoff values for fasting glucose and random glucose. The ADA defines fasting as no caloric intake for at least 8 hours. Fasting plasma glucose results between 100 to 125 mg/dL indicate increased risk for diabetes (prediabetes).Fasting plasma glucose results greater than or equal to 126 mg/dL meet the criteria for diagnosis of diabetes. In the absence of unequivocal hyperglycemia, results should be confirmed by repeat testing. In a patient with classic symptoms of hyperglycemia or hyperglycemic crisis, random plasma glucose results greater than or equal to 200 mg/dL meet the criteria for diagnosis of diabetes.Reference: Standards of Medical Care in Diabetes 2016, [place] Diabetes Association. Diabetes Care. 2016.39(Suppl 1). Performed By: #### B MP ####[facility] [place] [address] [phone] Potassium molar conc 3.9 mmol/L Normal 3.7-5.1 [facility] Comment on above: Performed By: #### BMP ####[address] [phone] Sodium molar conc 139 mmol/L Normal 136-144 [facility] Comment on above: Performed By: #### BMP ####[address] [phone] Urea nitrogen mass conc 13 mg/dL Normal 7-21 [facility] Comment on above: Performed By: #### BMP ####[address] [phone] BMP Plus FHCon 04-01-2018 Anion gap 3 molar conc 5 mmol/L Low 9-18 [facility] Calcium mass conc 9.8 mg/dL Normal 8.0-10.3 [facility] Chloride molar conc 105 mmol/L Normal 98-108 [facility] CO2 molar conc 30 mmol/L Normal 18-33 [facility] Creatinine mass conc 0.50 mg/dL Low 0.6-1.2 [facility] eGFR- Amer. >60 Normal [facility] GFR/1.73 sq M predicted among non-blacks MDRD vol rate/area (S/P/Bld) mL/min/{1.73_m2} Normal [facility] Comment on above: Result Comment: eGFR (Estimated GFR) Uni ts of measure: mL/min/1.73 meters squaredeGFR is derived from the reexpressed MDRD Study equation using the following parameters: serum creatinine, age, gender and race. The creatinine assay has been calibrated to be traceable to IDMS.An eGFR <60 mL/min/1.73m2 for >3 months is consistent with chronic kidney disease. Refer to KDOQI guidelines for clinical interpretation.In patients with unstable renal function, e.g. those with acute kidney injury, the eGFR may not accurately reflect actual GFR. Glucose mass conc 98 mg/dL Normal 73-118 [facility] Magnesium mass conc 2.0 mg/dL Normal 1.6-2.3 [facility] Potassium molar conc 3.5 mmol/L Low 3.6-5.1 [facility] Sodium molar conc 140 mmol/L Normal 128-145 [facility] Urea nitrogen mass conc 11 mg/dL Normal 7-22 [facility] CNOVon 04-01-2018 CNOV Office Visit (CAWSTR) JR MORALES ([id number]) 1960 [facility] Time Provider Department04/01/18 10:15 AM MELANY JEAN BAPTISTEWSNELLI During your visit today, we recorded the following information about you: Pulse Blood pressure Weight 72/minute 113/62 93.3 kgMelany Jean Baptiste MD 04/01/2018 1:25 PM SignedPERTINENT CARDIAC HISTORYChest painPalpitationsHTNHLADHERENCE TO GUIDELINESACE-I or ARB for HF with prior LVEF<40 (NQF 0081) - N/AASA or Plavix for ASHD (NQF 0067) - metBeta aime for ASHD with prior [place] or prior LVEF<40 (NQF 0070) - N/ABeta aime for HF with prior LVEF<40 (NQF 0083) - N/AACE-I or ARB for ASHD with DM or prior LVEF<40 (NQF 0066) - N/AStatin therapy for ASHD or FHL or DM - N/ABMI documented and plan if >25 (NQF 0421) - lifestyle recommendation formTobacco use screening and referral (NQF 0028) - lifestyle recommendation formRecommendation for whole food, plant based diet - lifestyle recommendation formCLINICAL IMPRESSION/PLAN:Jr Morales had a single episode of chest discomfort which is probably GIin etiology. There is no evidence of active ischemic heart disease. Lifestylemodification is indicated and was recommended. I've asked her to call if shehas recurrent discomfort.Her palpitations have been long-standing and her possibly related tohypokalemia. I recommended that she have basic profile, magnesium and TSH.Abnormalities will be corrected. Up titration of metoprolol may be helpful insuppressing this arrhythmia.She has been having some difficulty falling asleep and is tired during the day.Consideration should be given to sleep study. I discussed this with her and shewants to defer at this time.I would consider restarting an MARY inhibitor in the future if she requiresbetter blood pressure control. I would up titrate her beta aime first,however.Thank you for asking me to see and make recommendations on Jr Morales.This report will be faxed or mailed to you.Written and verbal health teaching given to patient, patient verbalizesunderstanding and agrees with treatment plan.DIAGNOSIS FOR VISIT:PalpitationsChest painHISTORY OF PRESENT ILLNESSJr Morales is a 58-year-old woman was seen in consultation at the requestof MICHELLE Snyder, for recommendations regarding long-standing history ofintermittent palpitations and recent episode of chest discomfort.She reports that last month she was at work and developed a tightness in herchest. She went home and symptoms worsened. She began vomiting. She went toemergency department where she was evaluated. She was kept overnight andcardiac testing was done. She was told that there was no evidence of heartdisease.She has continued her exercise program. The chest pain symptom has notrecurred. She notes that she gets a little short of breath when she walks up aflight of steps briskly, but her exercise tolerance has been stable whenwalking on level ground. She's had no exertional chest tightness. She deniesorthopnea, edema, TIAs, amaurosis, claudication, syncope or near syncope.She has had a long-standing history of intermittent palpitations. She reportsthat these are somewhat more frequent lately. In the past, she had been treatedwith beta aime. Recently, her valsartan was discontinued and she was startedon a beta aime again. Her symptoms have improved somewhat. She was noted gautam hypokalemic at the time of her emergency room visit last month.Risk factors for coronary disease include hypertension and hyperlipidemia.She reports that she feels tired frequently at work. She has not been sleepingwell due to pain. She's had no episodes of sudden falling asleep and no trafficaccidents. She sleeps alone and does not know if she snores.ALLERGIES:ALLERGIESAllergen Reactions- Ciprofloxacin Diarrhea- Codeine Intolerance cause migrainesCURRENT OUTPATIENT MEDICATIONS:metoprolol succinate ER (TOPROL XL) 25 mg 24 hr tablet Take 25 mg by mouth oncedaily.hydroCHLOROthiazide (HYDRODIURIL, ESIDRIX) 25 mg tablet Take 25 mg by mouthonce daily.traMADol (ULTRAM) 50 mg tablet Take 50 mg by mouth every 6 hours as needed.aspirin, enteric coated (ASPIRIN, ENTERIC COATED) 325 mg EC tablet Take 325 mgby mouth once daily.ALPRAZolam (XANAX) 0.25 mg tablet Take 0.25 mg by mouth at bedtime as needed.promethazine (PHENERGAN) 25 mg tablet Take 25 mg by mouth every 6 hours asneeded.sumatriptan (IMITREX) 100 mg ORAL tablet Take 100 mg by mouth as needed.Chlorpheniramine-HYDROcodon e (TUSSIONEX) 10-8 mg/5 mL suspension Take 5 mL bymouth every 12 hours as needed for Cough.PAST MEDICAL HISTORYDiagnosis Date- Asthma- Essential hypertension, benign- Irritable bowel syndrome- Migraine without aura, without mention of intractable migraine withoutmention of status migrainosus- Symptomatic menopausal or female climacteric states- Varicose veins of lower extremities with inflammationPAST SURGICAL HISTORYProcedure Laterality Date- REVISE SECONDARY VARICOSITY 02/07/2011 Varicose Vein SurgeryFAMILY HISTORYProblem Relation Age of Onset- Hypertension Mother- other (Lung Cancer [Other]) Father- Hypertension Father- other (Neutropenia [Other]) Sister- Hypertension BrotherSocial History Marital status: Spouse name: Years of education: Number of children:Social History Main Topics Smoking status: Never Smoker Smokeless tobacco: Never Used Drug use: UnknownREVIEW OF SYSTEMS: General: No chills, fever, weight loss, night sweats.SHEENT: No change in vision or auditory acuity. Respiratory: No productivecough. Cardiac: As noted above. GI: No melena.History of GERD. : Nodysuria. Musculoskeletal: No myalgias. Neurologic: No strokes. Psychiatric:No depression. Endocrine: No diabetes. Hematologic: No anemia.PHYSICAL EXAMINATION: S/he is alert and in no distressVITAL SIGNS: BP 113/62 Pulse 72 Wt 205 lb 9.6 oz (93.3kg)SHEENT: Skin is warm and dry. Pupils are round and reactive. Retinal vesselsare grossly unremarkable. No xanthelasmas appreciated. Pharynx is benign.There is no oral cyanosis. Neck: supple. No adenopathy or thyroidenlargement. Chest: Clear to percussion and auscultation. Trachea is midline. Air entry is equal. There is no chest wall tenderness. Cardiac: Regularrhythm. S1 and S2 are normal. PMI is nondisplaced. There is a 1/6 systolicejection murmur. No click is heard. Carotids are brisk without bruits. JVPis less than 10 cm. Abdomen: Soft and nontender. Obesity limits examinationThere are no pulsatile masses or bruits. No liver enlargement. Bowel soundsare active. : Deferred. Extremities: No edema. Pulses are intact andsymmetrical. No clubbing or cyanosis. No femoral bruits. Neurologic: Grosslynormal motor and sensory. S/he is alert and oriented x4. Musculoskeletal: Nojoint deformities.Records are reviewed. Evaluation in the emergency department showed no evidenceof acute coronary syndrome. Cardiac enzymes were undetectable.Echocardiogram by report showed normal heart function. There was aortic valvesclerosis. No other valvular disease was noted.Nuclear stress test showed no evidence of ischemia. Ejection fraction wasnormal.Holter monitor showed occasional isolated ventricular prematures and couplets.There were short SVT runs with occasional aberrancy.EKG was within normal limits. Occasional ectopic beats were noted.Potassium was 3.2. Troponin is undetectable. Magnesium level was not performed.D-dimer was normal.Electronically Signed:Whitney Day 2017 11:00 [facility]: Kiko Pfeiffer MD 04/01/2018 11:00 AM SignedLIFESTPATRICK CHANGEA healthy lifestyle is the most important component of your overall treatmentplan. Please give serious thought to the following areas and commit to makinglong term changes.EAT A WHOLE FOOD, PLANT BASED DIETThe nutrition your body gets is more important than the medicine you take.What matters most is the overall way you eat. We encourage you to minimize theuse of animal products (which include dairy and all meats except fatty fish)and use whole, unprocessed plant foods to provide your protein, vitamins andother nutrients. We have a lot of information to share with you on this topic.This is not a diet . It is a way of life that you will keep with you.EXERCISE REGULARLYIt is not important to spend hours in the gym, lifting weights and perspiringheavily. A total of 2-3 hours per week of aerobic (causing you to bemoderately short of breath) exercise is sufficient to improve your health.Talk to us before you begin a new exercise program, if you have heart diseaseor experience shortness of breath or chest pain.REDUCE STRESSChronic emotional and physical stress leads to disease. Ways of reducingstress include meditation, visualization, prayer, yoga and other forms ofrelaxation therapy. Consistency is the hartman. Find a technique that works foryou and do it every day.CULTIVATE RELATIONSHIPSLoneliness and isolation have a major negative impact on health. Seek outothers who can love, care for and nurture you. Avoid hurtful relationships.MAINTAIN IDEAL BODY WEIGHTThe best way to do this is to do all the things above. Our bodies naturallyfind the right weight if we keep moving and feed ourselves the right food. Ifyour BMI is greater than 25, we strongly recommend a referral to a weightmanagement program. Please speak to us or your family physician aboutavailable programs.AVOID NICOTINE IN ALL FORMSThis includes all tobacco products, whether chewed, smoked, vaped, or rubbed onthe skin. Smoking cessation programs, which can make use of tobaccosubstitutes, medications to suppress cravings and behavior management, areavailable. Please contact your family physician about programs in your area.Cindi Lion RN 04/01/2018 1:54 PM SignedCopy of office note Josselin Lion RNReferring Provider: GLENN GREGORY [[id number]]Allergies As of Date: 04/01/2018 Noted Allergy ReactionCIPROFLOXACIN 03/05/2011 6 - DiarrheaCODEINE 03/05/2011 5 - Intolerance Comments: cause migrainesDate Reviewed: 04/01/2018Reviewed by: Dahlia Woods) Adal - Fully AssessedReason for Visit: New Patient [172]Primary Visit Diagnosis:Chest pain, unspecified type [R07.9] Other Visit Diagnoses:Hypertension, essential [I10] Palpitations [R00.2]Order(s):BMP PLUS [facility] [SQPICBMP] Order #: [id number] FUTURE TSH BLD [SQTSH] Order #: [id number] FUTUREPrescriptions as of 04/01/2018 Sig: METOPROLOL SUCCINATE ER 25 MG* Take 25 mg by mouth once boo* HYDROCHLOROTHIAZIDE 25 MG TAB* Take 25 mg by mouth once boo* TRAMADOL 50 MG TABLET Take 50 mg by mouth every 6 h* ASPIRIN 325 MG TABLET,DELAYED* Take 325 mg by mouth once aidan* ALPRAZOLAM 0.25 MG TABLET Take 0.25 mg by mouth at bedt* PROMETHAZINE 25 MG TAB (PHENE* Take 25 mg by mouth every 6 h* * SUMATRIPTAN 100 MG TABLET Take 100 mg by mouth as neede* HYDROCODONE 10 MG-CHLORPHENIR* Take 5 mL by mouth every 12 h* Patient not taking: Reported on 04/01/2018Problem List As Of Date 04/01/2018 Noted Resolved Leukopenia [D72.819] INVALID FOR* Other instructions from your clinician: LIFESTYLE CHANGE A healthy lifestyle is the most important component of your overall treatment plan. Please give serious thought to the following areas and commit to making jail changes. EAT A WHOLE FOOD, PLANT BASED DIET The nutrition your body gets is more important than the medicine you take. What matters most is the overall way you eat. We encourage you to minimize the use of animal products (which include dairy and all meats except fatty fish) and use whole, unprocessed plant foods to provide your protein, vitamins and other nutrients. We have a lot of information to share with you on this topic. This is not a diet . It is a way of life that you will keep with you. EXERCISE REGULARLY It is not important to spend hours in the gym, lifting weights and perspiring heavily. A total of 2-3 hours per week of aerobic (causing you to be moderately short of breath) exercise is sufficient to improve your health. Talk to us before you begin a new exercise program, if you have heart disease or experience shortness of breath or chest pain. REDUCE STRESS Chronic emotional and physical stress leads to disease. Ways of reducing stress include meditation, visualization, prayer, yoga and other forms of relaxation therapy. Consistency is the hartman. Find a technique that works for you and do it every day. CULTIVATE RELATIONSHIPS Loneliness and isolation have a major negative impact on health. Seek out others who can love, care for and nurture you. Avoid hurtful relationships. MAINTAIN IDEAL BODY WEIGHT The best way to do this is to do all the things above. Our bodies naturally find the right weight if we keep moving and feed ourselves the right food. If your BMI is greater than 25, we strongly recommend a referral to a weight management program. Please speak to us or your family physician about available programs. AVOID NICOTINE IN ALL FORMS This includes all tobacco products, whether chewed, smoked, vaped, or rubbed on the skin. Smoking cessation programs, which can make use of tobacco substitutes, medications to suppress cravings and behavior management, are available. Please contact your family physician about programs in your area.Visit Notes:>> Cindi Lion RN FriApr 01, 2018 1:54 PM Status: SignedCopy of office note Josselin Lion RNMedications Discontinued During This Encounter Valsartan-Hydrochlorothiazide (DIOVA* 04/01/2018 Class: Med Update Route: ORAL Sig: Take 1 tablet by mouth once daily. Disc: Reason for discontinue is not on file.Follow-up and Disposition History RecordedEncounter Number: [id number] Status:Closed by MELANY JEAN BAPTISTE MD on 04/01/18 [facility] PROGRESSon 04-01-2018 Protein mass conc HNO ID: [id number]: Melany Macario: (none)Author Type: PhysicianType: Progress NotesFiled: 04/01/2018 1:25 PMNote Text:PERTINENT CARDIAC HISTORYChest painPalpitationsHTNHLADHERENCE TO GUIDELINESACE-I or ARB for HF with prior LVEF<40 (NQF 0081) - N/AASA or Plavix for ASHD (NQF 0067) - metBeta aime for ASHD with prior [place] or prior LVEF<40 (NQF 0070) - N/ABeta aime for HF with prior LVEF<40 (NQF 0083) - N/AACE-I or ARB for ASHD with DM or prior LVEF<40 (NQF 0066) - N/AStatin therapy for ASHD or FHL or DM - N/ABMI documented and plan if >25 (NQF 0421) - lifestyle recommendation formTobacco use screening and referral (NQF 0028) - lifestyle recommendationformRecommendation for whole food, plant based diet - lifestyle recommendationformCLINICAL IMPRESSION/PLAN:Jr Morales had a single episode of chest discomfort which is probablyGI in etiology. There is no evidence of active ischemic heart disease.Lifestyle modification is indicated and was recommended. I've asked her tocall if she has recurrent discomfort.Her palpitations have been long-standing and her possibly related tohypokalemia. I recommended that she have basic profile, magnesium and TSH.Abnormalities will be corrected. Up titration of metoprolol may be helpfulin suppressing this arrhythmia.She has been having some difficulty falling asleep and is tired during theday. Consideration should be given to sleep study. I discussed this withher and she wants to defer at this time.I would consider restarting an MARY inhibitor in the future if she requiresbetter blood pressure control. I would up titrate her beta aime first,however.Thank you for asking me to see and make recommendations on Jr Yang. This report will be faxed or mailed to you.Written and verbal health teaching given to patient, patient verbalizesunderstanding and agrees with treatment plan.DIAGNOSIS FOR VISIT:PalpitationsChest painHISTORY OF PRESENT ILLNESSJr Morales is a 58-year-old woman was seen in consultation at [facility] of MICHELLE Snyder, for recommendations regardinglong-standing history of intermittent palpitations and recent episode ofchest discomfort.She reports that last month she was at work and developed a tightness inher chest. She went home and symptoms worsened. She began vomiting. Shewent to emergency department where she was evaluated. She was keptovernight and cardiac testing was done. She was told that there was noevidence of heart disease.She has continued her exercise program. The chest pain symptom has notrecurred. She notes that she gets a little short of breath when she walksup a flight of steps briskly, but her exercise tolerance has been stablewhen walking on level ground. She's had no exertional chest tightness. Shedenies orthopnea, edema, TIAs, amaurosis, claudication, syncope or nearsyncope.She has had a long-standing history of intermittent palpitations. Shereports that these are somewhat more frequent lately. In the past, she hadbeen treated with beta aime. Recently, her valsartan was discontinuedand she was started on a beta aime again. Her symptoms have improvedsomewhat. She was noted to be hypokalemic at the time of her emergencyroom visit last month.Risk factors for coronary disease include hypertension and hyperlipidemia.She reports that she feels tired frequently at work. She has not beensleeping well due to pain. She's had no episodes of sudden falling asleepand no traffic accidents. She sleeps alone and does not know if shesnores.ALLERGIES:ALLERGIESAller gen Reactions- Ciprofloxacin Diarrhea- Codeine Intolerance cause migrainesCURRENT OUTPATIENT MEDICATIONS:metoprolol succinate ER (TOPROL XL) 25 mg 24 hr tablet Take 25 mg by mouthonce daily.hydroCHLOROthiazide (HYDRODIURIL, ESIDRIX) 25 mg tablet Take 25 mg bymouth once daily.traMADol (ULTRAM) 50 mg tablet Take 50 mg by mouth every 6 hours asneeded.aspirin, enteric coated (ASPIRIN, ENTERIC COATED) 325 mg EC tablet [id number] mg by mouth once daily.ALPRAZolam (XANAX) 0.25 mg tablet Take 0.25 mg by mouth at bedtime asneeded.promethazine (PHENERGAN) 25 mg tablet Take 25 mg by mouth every 6 hours asneeded.sumatriptan (IMITREX) 100 mg ORAL tablet Take 100 mg by mouth as needed.Chlorpheniramine-HYDROcodon e (TUSSIONEX) 10-8 mg/5 mL suspension Take 5 mLby mouth every 12 hours as needed for Cough.PAST MEDICAL HISTORYDiagnosis Date- Asthma- Essential hypertension, benign- Irritable bowel syndrome- Migraine without aura, without mention of intractable migraine withoutmention of status migrainosus- Symptomatic menopausal or female climacteric states- Varicose veins of lower extremities with inflammationPAST SURGICAL HISTORYProcedure Laterality Date- REVISE SECONDARY VARICOSITY 02/07/2011 Varicose Vein SurgeryFAMILY HISTORYProblem Relation Age of Onset- Hypertension Mother- other (Lung Cancer [Other]) Father- Hypertension Father- other (Neutropenia [Other]) Sister- Hypertension BrotherSocial History Marital status: Spouse name: Years of education: Number of children:Social History Main Topics Smoking status: Never Smoker Smokeless tobacco: Never Used Drug use: UnknownREVIEW OF SYSTEMS: General: No chills, fever, weight loss, night sweats. SHEENT: No change in vision or auditory acuity. Respiratory: Noproductive cough. Cardiac: As noted above. GI: No melena.History ofGERD. : No dysuria. Musculoskeletal: No myalgias. Neurologic: Nostrokes. Psychiatric: No depression. Endocrine: No diabetes.Hematologic: No anemia.PHYSICAL EXAMINATION: S/he is alert and in no distressVITAL SIGNS: BP 113/62 Pulse 72 Wt 205 lb 9.6 oz (93.3kg)SHEENT: Skin is warm and dry. Pupils are round and reactive. Retinalvessels are grossly unremarkable. No xanthelasmas appreciated. Pharynxis benign. There is no oral cyanosis. Neck: supple. No adenopathy orthyroid enlargement. Chest: Clear to percussion and auscultation.Trachea is midline. Air entry is equal. There is no chest walltenderness. Cardiac: Regular rhythm. S1 and S2 are normal. PMI isnondisplaced. There is a 1/6 systolic ejection murmur. No click isheard. Carotids are brisk without bruits. JVP is less than 10 cm.Abdomen: Soft and nontender. Obesity limits examination There are nopulsatile masses or bruits. No liver enlargement. Bowel sounds areactive. : Deferred. Extremities: No edema. Pulses are intact andsymmetrical. No clubbing or cyanosis. No femoral bruits. Neurologic:Grossly normal motor and sensory. S/he is alert and oriented x4.Musculoskeletal: No joint deformities.Records are reviewed. Evaluation in the emergency department showed noevidence of acute coronary syndrome. Cardiac enzymes were undetectable.Echocardiogram by report showed normal heart function. There was aorticvalve sclerosis. No other valvular disease was noted.Nuclear stress test showed no evidence of ischemia. Ejection fraction wasnormal.Holter monitor showed occasional isolated ventricular prematures andcouplets. There were short SVT runs with occasional aberrancy.EKG was within normal limits. Occasional ectopic beats were noted.Potassium was 3.2. Troponin is undetectable. Magnesium level was notperformed. D-dimer was normal.Electronically Signed:Whitney Day 2017 11:00 [facility] Soco Mercer MD Normal [facility] TSHon 04-01-2018 Thyrotropin Qn 3.940 uU/mL Normal 0.400-5.500 [facility] Comment on above: Performed By: #### TSH ####[facility] [id number] [place], [place] [phone] Encounters Encounter Date Encounter Type Care Provider Facility Start: 06-12-2023 End: 06-13-2023 [facility] Facility:B Start: 06-12-2023 End: 06-12-2023 Patient encounter procedure MIKE PACHECO MD [facility] Start: 04-17-2018 End: 04-17-2018 Patient encounter MELANY JEAN BAPTISTE [facility] Start: 04-01-2018 End: 04-01-2018 Patient encounter MELANY JEAN BAPTISTE [facility] Procedures Date Procedure Procedure Detail Performing Clinician Hypertensive disorde r, systemic arterial (disorder) MIKE PACHECO MD Irregular heart beat (finding) MIKE PACHECO MD Knee pain (finding) MIKE BOSWELL MD Payers Date Payer Category Payer Unknown [id number] 1960 Unknown [id number] 1960 Unknown [id number] Social History Date Type Detail Facility Tobacco smoking status Never smo ked tobacco (finding) [facility] Sex Assigned At Female [facility] Evaluation + Plan note Note Date & Type Note Facility Evaluation + Plan note No data available for this section [facility] Hospital Discharge instructions Note Date & Type Note Facility Hospital Discharge instructions No data available for this section [facility] Progress note Note Date & Type Note Facility Progress note No data available for this section [facility] Summary Purpose Family History No Family History Records Found No data available for this section No Family History Records Found Advance Directives No Advanced Directives Records FoundNo Advanced Directives Records Found Additional Source Comments INFORMATION SOURCE (unrecogn ized section and content) DATE CREATED AUTHOR 04/28/2018 [facility] DATE CREATED AUTHOR AUTHOR'S ORGANIZ ATION 06/25/2023 [facility] ([place]) Patient Care team informatio n (unrecognized section and content) Care Team Personnel Name: SHAN WINTERS MD Member Role: Primary Care Physician Address: Address: [address] [place] [address] Care Team Related Persons Name: ANGELINA MORRISON Name: angelina MORRISON Name: KUNAL MORALES Address: Home [address] [place] [address] FOR RECORDS PERTAINING TO PATIENTS WHO ARE [...] BE BASED ON THE PRIMARY CLINICAL RECORDS. [employer] [facility]. provides no warranty or guarantee of the accuracy or completeness of information in this document.
[2024-06-07 12:18] LABS: Absolute Lymphocyte Count 1.83 X10^3/uL (0.83-4.51); Absolute Neutrophil Count 2.2 X10^3/uL (2.0-7.7); Basophil# 0.05 X10^3/uL; Eosinophil# 0.33 X10^3/uL; Eosinophils% 6.9 % (0-5); Hematocrit 38.6 % (37-47); Hemoglobin 12.2 g/dL (12.0-15.0); Lymphocyte # 1.83 X10^3/ul (0.83-4.51); Mean Corp Hgb Conc 31.6 g/dL (32-36); Mean Corpuscular Hgb 29.7 pg (27.0-32.0); Mean Corpuscular Volume 93.9 fL (81-99); Mean Platelet Vol. 12.2 fl (6.2-12.0); Monocyte% 8.3 % (0-10); NRBC Flagged by Analyzer 0 % (0-5); Neutrophil # 2.18 X10^3/uL (2.7-7.7); Neutrophil % 45.4 % (47-70); Platelet Count 279 K/mm3 (150-450); RBC Distribution Width SD 44.5 fl (35.1-43.9); Red Blood Count 4.11 M/mm3 (4.2-5.4); White Blood Count 4.8 K/mm3 (4.4-11.0)
[2024-06-07 12:24] LABS: Prothrombin Time (Protime)PT. 12.8 SECONDS (11.7-14.9)
[2024-06-07 12:25] LABS: Partial Thromboplast Time 22.9 Seconds (24.1-36.2)
[2024-06-07 12:38] LABS: AST(SGOT) 19 U/L (15-37); Alanine Aminotransfer ALT/SGPT 23 U/L (13-56); Albumin, Serum 3.5 g/dL (3.2-5.0); Alkaline Phosphatase 85 U/L (45-117); Anion Gap 7 (5-15); BUN 17 mg/dL (7-18); BUN/Creat Ratio 16.5 RATIO (10-20); Calcium,Total 9.1 mg/dL (8.5-10.1); Chloride 106 mmol/L (98-107); Creatinine, Serum 1.03 mg/dL (0.55-1.02); EST Glomerular Filtration Rate 57 mL/min (>60); Est Glom Filt Rate - Afr Amer 69 mL/min (>60); Globulin 3.6 g/dL (2.2-4.2); Glucose 114 mg/dL (74-106); Potassium 3.5 mmol/L (3.5-5.1); Protein, Total 7.1 g/dL (6.4-8.2); Sodium Level 136 mmol/L (136-145)
[2024-06-07 12:43] LABS: Cholesterol 238 mg/dL (200); High Density Lipoprotein 70 mg/dL; Triglycerides 218 mg/dL; Very Low Density Lipoprotein 44 mg/dL (5-40)
== END | disposition home or self-care (01) ==
PROVIDERS: PCP Internal Medicine; Referring Provider Internal Medicine Medical Oncology; Visit Provider Internal Medicine Medical Oncology
DX: I26.94 Multiple subsegmental thrombotic pulmonary emboli without acute cor pulmonale (principal); I10 Essential (primary) hypertension; R06.02 Shortness of breath
CPT/HCPCS: 36415; 80053; 80061; 85025; 85379; 85610; 85730

== ENCOUNTER 2024-06-09 08:32 | Day surgery (SDC) | payer MEDICARE, SELFPAY ==
[2024-06-09] VITALS (7 sets, daily range): BP systolic 117–153; BP diastolic 69–80; PULSE 78–112; RESP 16–22; TEMP 36.1–36.6; O2SAT 98–100; BMI 35.9
--- NOTE | 2024-06-09 08:59 | PCM.PRE.AN2 ---
ASA Classification* ASA Classification ASA Classification: 2 (SEE WRITTEN PRE ANESTHESIA RECORD FOR FULL ASSESSMENT) Assessment & Plan Anesthesia* Anesthesia Assessment Anesthesia Assessment: Discussed sedation and/or anesthesia options, risks, benefits, and alternatives with patient/parents/legal guardian/POA. Questions invited. The patient/parents/legal guardian/POA seems to understand and agrees to proceed with anesthesia plan. Reviewed the physical assessment, medical history, allergy history and patient home medications list prior to surgery/procedure/anesthetic and documented any changes. Performed airway and anesthesia risk assessments. Anesthesia Type Anesthesia Type: MAC (SEE WRITTEN PRE ANESTHESIA RECORD FOR FULL ASSESSMENT) Anesthesia Focused Assessment* Airway Assessment Mouth opens: >3 cm Mallampati Score: II Focused Labs Anesthesia Preop lab: CBC WBC 4.8 K/mm3 (4.4-11.0) 06/07/24 08:48 RBC 4.11 M/mm3 (4.2-5.4) L 06/07/24 08:48 Hgb 12.2 g/dL (12.0-15.0) 06/07/24 08:48 Hct 38.6 % (37-47) 06/07/24 08:48 Plt Count 279 K/mm3 (150-450) 06/07/24 08:48 CHEMISTRY Potassium 3.5 mmol/L (3.5-5.1) 06/07/24 08:48 Sodium 136 mmol/L (136-145) 06/07/24 08:48 Magnesium 2.2 mg/dL (1.6-2.6) 03/03/20 15:22 BUN 17 mg/dL (7-18) 06/07/24 08:48 Creatinine 1.03 mg/dL (0.55-1.02) H 06/07/24 08:48 Glucose 114 mg/dL (74-106) H 06/07/24 08:48 POC Glucose 109 mg/dL (70-110) 03/13/20 09:51 COAG PT 12.8 SECONDS (11.7-14.9) 06/07/24 08:48 Pre-Assessment Diagnosis/Proposed Procedure Planned Operative Procedure(s): CSCOPE Anesthesia History 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 When Was Last Pacemaker Check QUESTION #4 FULL TEXT: You/Your Family Experience fever (hyperthermia) with Anesthesia Last Oral Intake Last Oral intake: Last Oral Intake NPO since Meds taken in AM with sips of water? 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 Has anyone observed you stop No 06/07/24 13:33 breathing during sleep? STOP Results Negative 06/07/24 13:33 QUESTION #5 FULL TEXT : Do you snore loudly (louder than talking or can be heard through closed doors)? 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 Specify any problems Hx of Preganancy in last 3 N/A 06/07/24 13:33 Months Nurse Filling Out Transfusion NBUCHER 06/07/24 13:33 & Questions: Date: 06/07/24 06/07/24 13:33 Time: 13:34 06/07/24 13:33 Patient unable to answer at this time (ie. confused, unrespo /Reproduction History /Reproductive History - lime kiln worker helper: /Reproductive Hx- lime kiln worker helper Hx Now Gestational Age (in weeks): EDC: Hx Hx Para [facility] History Wears glasses Cancer Anemia History of edema Non-smoker History of echocardiogram History of irregular heartbeat PONV (postoperative nausea and vomiting) Colon cancer screening Pathological fracture Left forearm fracture Osteoporosis Contusion of left chest wall Contact with or exposure to other viral diseases Shortness of breath Anxiety Urinary tract infection with hematuria Health care maintenance Insomnia Elbow fracture, left Failed total right knee replacement Upper respiratory infection Acute sinusitis Left hip pain Hypertension Obesity (BMI 30-39.9) Low blood potassium Osteoarthritis High blood pressure Migraines Skin cancer Asthma Arthritis Seasonal allergies Home Medications ?Medication ?Instructions ?Recorded ?Last Taken ?Type omeprazole 40 mg capsule,delayed 40 mg PO BID #180 caps 09/15/23 Unknown Rx release potassium chloride 20 mEq 20 meq PO BID #180 tabs 12/22/23 Unknown Rx tablet,extended release metoprolol succinate 25 mg 25 mg PO DAILY #90 tabs 01/19/24 06/09/24 Rx tablet,extended release 24 hr denosumab 60 mg/mL subcutaneous 60 mg subcut [id number] #1 mL 02/26/24 Unknown Rx syringe (Prolia) hydrochlorothiazide 25 mg tablet 25 mg PO DAILY #90 tabs 04/13/24 Unknown Rx losartan 50 mg tablet 50 mg PO DAILY #90 tabs 04/13/24 06/09/24 Rx albuterol sulfate 90 mcg/actuation 2 puff inhalation Q6H PRN 04/30/24 Unknown Rx aerosol inhaler (Ventolin HFA) shortness of breath or wheezing #8.5 grams alprazolam 0.25 mg tablet 0.25 mg PO QHS PRN sleep #30 tabs 04/30/24 06/09/24 Rx cyclobenzaprine 10 mg tablet 10 mg PO TID PRN muscle spasm #90 04/30/24 Unknown Rx tabs diphenhydramine HCl 25 mg tablet 25 mg PO QHS PRN allergies 05/04/24 Unknown History escitalopram oxalate 5 mg tablet See Rx Instructions .Route 05/19/24 Unknown Rx .COMPLEX #90 tabs acetaminophen 500 mg tablet 1,000 mg PO Q8 PRN pain 06/07/24 Unknown History Allergy/AdvReac Type Severity Reaction Status Date / Time ciprofloxacin (From Cipro) Allergy Hives Verified 06/09/24 08:55 Iodinated Contrast Media Allergy DIZZINESS, Verified 06/09/24 08:55 VOMITING Family History Sister Rheumatoid arthritis Secondary Sjogren's syndrome Father Lung cancer Mother Hypertension Thyroid disorder Daughter Thyroid disorder Other Arthritis Surgical History Hx of colonoscopy History of right knee surgery History of total left knee replacement History of varicose vein stripping Social History household members: spouse current occupational status: retired Smoking Status: Never smoker alcohol intake: current alcohol intake frequency: holidays/special occasions only substance use type: does not use what type of physical activity do you participate in: walking and bicycling frequency: daily duration: 30-45 minutes/day Review of Systems (Anesthesia) ROS Narrative System reviewed and no additional complaints, except as documented.
[2024-06-09] MEDS: Lactated Ringers 500 ML 999 ML IV (09:13)
--- NOTE | 2024-06-09 09:47 | HP.PCM_ITS ---
HPI - General General Date of Admission: 06/09/24 Date of Service: 06/09/24 Chief Complaint: Screening colonoscopy HPI Narrative JR MORALES, is a 64 F who presents here today for screening colonoscopy. She had a colonoscopy approximately 10 years ago and it was normal. She has past medical history of mild migraines, mild hypertension and osteoporosis. All other past medical history is normal. [facility] Medical History Wears glasses Cancer Anemia History of edema Non-smoker History of echocardiogram History of irregular heartbeat PONV (postoperative nausea and vomiting) Colon cancer screening Pathological fracture Left forearm fracture Osteoporosis Contusion of left chest wall Contact with or exposure to other viral diseases Shortness of breath Anxiety Urinary tract infection with hematuria Health care maintenance Insomnia Elbow fracture, left Failed total right knee replacement Upper respiratory infection Acute sinusitis Left hip pain Hypertension Obesity (BMI 30-39.9) Low blood potassium Osteoarthritis High blood pressure Migraines Skin cancer Asthma Arthritis Seasonal allergies Home Medications ?Medication ?Instructions ?Recorded ?Last Taken ?Type omeprazole 40 mg capsule,delayed 40 mg PO BID #180 caps 09/15/23 Unknown Rx release potassium chloride 20 mEq 20 meq PO BID #180 tabs 12/22/23 Unknown Rx tablet,extended release metoprolol succinate 25 mg 25 mg PO DAILY #90 tabs 01/19/24 06/09/24 Rx tablet,extended release 24 hr denosumab 60 mg/mL subcutaneous 60 mg subcut [id number] #1 mL 02/26/24 Unknown Rx syringe (Prolia) hydrochlorothiazide 25 mg tablet 25 mg PO DAILY #90 tabs 04/13/24 Unknown Rx losartan 50 mg tablet 50 mg PO DAILY #90 tabs 04/13/24 06/09/24 Rx albuterol sulfate 90 mcg/actuation 2 puff inhalation Q6H PRN 04/30/24 Unknown Rx aerosol inhaler (Ventolin HFA) shortness of breath or wheezing #8.5 grams alprazolam 0.25 mg tablet 0.25 mg PO QHS PRN sleep #30 tabs 04/30/24 06/09/24 Rx cyclobenzaprine 10 mg tablet 10 mg PO TID PRN muscle spasm #90 04/30/24 Unknown Rx tabs diphenhydramine HCl 25 mg tablet 25 mg PO QHS PRN allergies 05/04/24 Unknown History escitalopram oxalate 5 mg tablet See Rx Instructions .Route 05/19/24 Unknown Rx .COMPLEX #90 tabs acetaminophen 500 mg tablet 1,000 mg PO Q8 PRN pain 06/07/24 Unknown History Allergy/AdvReac Type Severity Reaction Status Date / Time ciprofloxacin (From Cipro) Allergy Hives Verified 06/09/24 08:55 Iodinated Contrast Media Allergy DIZZINESS, Verified 06/09/24 08:55 VOMITING Family History Sister Rheumatoid arthritis Secondary Sjogren's syndrome Father Lung cancer Mother Hypertension Thyroid disorder Daughter Thyroid disorder Other Arthritis Surgical History Hx of colonoscopy History of right knee surgery History of total left knee replacement History of varicose vein stripping Social History household members: spouse current occupational status: retired Smoking Status: Never smoker alcohol intake: current alcohol intake frequency: holidays/special occasions only substance use type: does not use what type of physical activity do you participate in: walking and bicycling frequency: daily duration: 30-45 minutes/day ROS Constitutional Constitutional: Reports systems reviewed and no addt'l complaints, except as documented Eyes Eyes: Reports systems reviewed and no addt'l complaints, except as documented ENT HEENT: Reports systems reviewed and no addt'l complaints, except as documented Cardiovascular Cardiovascular: Reports systems reviewed and no addt'l complaints, except as documented Respiratory/Chest Respiratory/Chest: Reports systems reviewed and no addt'l complaints, except as documented Gastrointestinal Gastrointestinal: Reports systems reviewed and no addt'l complaints, except as documented Genitourinary Genitourinary: Reports systems reviewed and no addt'l complaints, except as documented Musculoskeletal Musculoskeletal: Reports systems reviewed and no addt'l complaints, except as documented Integumentary Integumentary: Reports systems reviewed and no addt'l complaints, except as documented Neurologic Neurologic: Reports systems reviewed and no addt'l complaints, except as documented Psychiatric Psychiatric: Reports systems reviewed and no addt'l complaints, except as documented Endocrine Endocrinology: Reports systems reviewed and no addt'l complaints, except as documented Hematologic/Lymphatic Hematologic/Lymphatic: Reports systems reviewed and no addt'l complaints, except as documented Allergic/Immunologic Allergic/Immunologic: Reports systems reviewed and no addt'l complaints, except as documented Vital Signs Vital Signs Vital Signs: 06/09/24 08:58 06/09/24 08:58 Temperature 97.8 F Temperature Source Temporal Pulse Rate 112 H Respiratory Rate 22 H Respiratory Pattern Normal Blood Pressure 153/73 H Blood Pressure Mean 99 Blood Pressure Source Monitor Blood Pressure Position Semi-Fowlers Blood Pressure Location Left Arm Pulse Ox 98 Oxygen Delivery Method Room Air Weight Weight: 222 lb 10.67 oz Body Mass Index (BMI) 35.9 Physical Exam Const alert, oriented x3 and no apparent distress HEENT normocephalic Eyes PERRL, EOMs intact bilaterally and conjunctivae normal Neck supple Lymph Lymphatic: no lymphadenopathy noted Chest inspection of chest normal Resp normal respiratory effort and clear to auscultation bilaterally Cardio regular rate, regular rhythm, S1 normal heart sound and S2 normal heart sound GI normal to inspection, nondistended, normoactive bowel sounds no CVA tenderness Back/Spine no CVA tenderness and thoracic and lumbar spine normal to inspection Extremity normal to inspection and no clubbing, cyanosis or edema Skin no rashes or lesions noted Neuro oriented x3, CN's II-XII intact bilaterally and moves all extremities Psych mental status grossly normal Assessment & Plan Assessment/Plan (1) Colon cancer screening: PLAN: She was explained alternatives, risk, benefits include not withstanding bleeding, infection, sepsis, perforation, need for emergent urgent . She have an ASA of 3.
--- NOTE | 2024-06-09 10:49 | OP.CCLET_ITS ---
06/09/2024 Chauncey Dale MD [address] [place] [address] Re : Colonoscopy procedure for Lisa Galdamez Dear Dr. Dale This procedure was performed on Sunday, June 09, 2024. My impressions and recommendations are as follows: Impressions : - Diverticulosis in the sigmoid colon. - The examination was otherwise normal on direct and retroflexion views. - No specimens collected. Recommendations : - Discharge patient to home. - Resume previous diet. - Continue present medications. - Repeat colonoscopy in 10 years for screening purposes. My findings are described in the full procedure note, which is enclosed. If I can be of further assistance, please feel free to contact me at . Sincerely, Mariano Warren, 06/09/2024 10:48:22 AM This report has been signed electronically.
--- NOTE | 2024-06-09 10:49 | OP.COLON_ITS ---
Patient Name: Lisa Galdamez Procedure Date: 06/09/2024 10:20 AM Date of : 1960 Age: 64 Procedure: Colonoscopy Indications: Screening for colorectal malignant neoplasm Providers: Mariano Warren DO Referring MD: Chauncey Dale MD Medicines: Monitored Anesthesia Care Patient Profile: This is a 64 year old female. Refer to note in patient chart for documentation of history and physical. Last Colonoscopy: 10 years ago. Complications: No immediate complications. Procedure: Pre-Anesthesia Assessment: - Prior to the procedure, a History and Physical was performed, and patient medications and allergies were reviewed. The patient is competent. The risks and benefits of the procedure and the sedation options and risks were discussed with the patient. All questions were answered and informed consent was obtained. Patient identification and proposed procedure were verified by the physician in the pre-procedure area. Mental Status Examination: alert and oriented. Airway Examination: normal oropharyngeal airway and neck mobility. Respiratory Examination: clear to auscultation. CV Examination: normal. Prophylactic Antibiotics: The patient does not require prophylactic antibiotics. Prior Anticoagulants: The patient has taken no anticoagulant or antiplatelet agents. ASA Grade Assessment: II - A patient with mild systemic disease. After reviewing the risks and benefits, the patient was deemed in satisfactory condition to undergo the procedure. The anesthesia plan was to use monitored anesthesia care (MAC). Immediately prior to administration of medications, the patient was re-assessed for adequacy to receive sedatives. The heart rate, respiratory rate, oxygen saturations, blood pressure, adequacy of pulmonary ventilation, and response to care were monitored throughout the procedure. The physical status of the patient was re-assessed after the procedure. After I obtained informed consent, the scope was passed under direct vision. Throughout the procedure, the patient's blood pressure, pulse, and oxygen saturations were monitored continuously. The colonoscope was introduced through the anus and advanced to the cecum, identified by appendiceal orifice and ileocecal valve. The colonoscopy was performed without difficulty. The patient tolerated the procedure well. The quality of the bowel preparation was adequate. The ileocecal valve, appendiceal orifice, and rectum were photographed. Scope In: Scope Out: Findings: The perianal and digital rectal examinations were normal. A few small-mouthed diverticula were found in the sigmoid colon. The exam was otherwise without abnormality on direct and retroflexion views. Impression: - Diverticulosis in the sigmoid colon. - The examination was otherwise normal on direct and retroflexion views. - No specimens collected. Recommendation: - Discharge patient to home. - Resume previous diet. - Continue present medications. - Repeat colonoscopy in 10 years for screening purposes. Procedure Code(s): --- Professional --- G0121, Colorectal cancer screening; colonoscopy on individual not meeting criteria for high risk CPT copyright 2021 [employer]. All rights reserved. The codes documented in this report are preliminary and upon retrimmer review may be revised to meet current compliance requirements. Mariano Warren DO 06/09/2024 10:48:22 AM This report has been signed electronically. Number of Addenda: 0 Note Initiated On: 06/09/2024 10:20 AM
--- NOTE | 2024-06-09 10:53 | PCM.POST.ANE ---
Anesthesia: Postop Eval I Current Vital Signs Temperature: 97 F Pulse Rate: 84 Blood Pressure: 121/77 Respiratory Rate: 18 Pulse Ox: 100 Oxygen Delivery Method: Room Air Assessment Airway patent: Yes Spontaneous unlabored respirations: Yes Mental status: Awake nausea: No Vomiting: No Anesthesia Complication: No Fluid Hydration Crystalloid volume administer (ml): 400 Total IV fluid infused: 400 Progress Note Anesthesia document: Postop Eval 1 completed: Yes
--- NOTE | 2024-06-09 11:22 | PCM.POSTANE2 ---
Anesthesia Postop Eval I Sum Postop Eval Completion status Anesthesia document: Postop Eval 1 completed: Yes Anesthesia Postop Eval I Summary Anesthesia Postop Eval I Summary: Anesthesia Postop Eval I: Assessment Summary Airway patent Yes 06/09/24 10:54 [email or web address] Spontaneous unlabored Yes 06/09/24 10:54 [email or web address] respirations Mental status Awake 06/09/24 10:54 [email or web address] nausea No 06/09/24 10:54 [email or web address] Vomiting No 06/09/24 10:54 [email or web address] Anesthesia Postop Eval I: Fluid Summary Crystalloid volume administer 400 06/09/24 10:54 [email or web address] (ml) Colloids volume administered ( ml) Blood Product volume administered (ml) Total IV fluid infused 400 06/09/24 10:54 [email or web address] Anesthesia Postop Eval I: Summary Notes Anesthesia Complication No 06/09/24 10:54 [email or web address] Anesthesia Complication Comment: Post-operative progress note Anesthesia: Postop Eval II Evaluation Mental status: Awake Pain Level: 0 nausea: No Vomiting: No
== END 2024-06-09 11:28 | disposition home or self-care (01) ==
LOC: EN 08:32 → AC 08:34
PROVIDERS: PCP Internal Medicine; Referring Provider Internal Medicine; Visit Provider Internal Medicine Gastroenterology
PROC: 0DJD8ZZ Inspection of Lower Intestinal Tract, Via Natural or Artificial Opening Endoscopic (ICD-10-PCS; CPT 45378; principal; 2024-06-09 09:55)
DX: Z12.11 Encounter for screening for malignant neoplasm of colon (principal); K57.30 Diverticulosis of large intestine without perforation or abscess without bleeding; K21.9 Gastro-esophageal reflux disease without esophagitis; I10 Essential (primary) hypertension; Z79.899 Other long term (current) drug therapy; Z86.16 Personal history of COVID-19
CPT/HCPCS: G0121; J7120; J2405

== ENCOUNTER → 2024-06-17 | Outpatient (CLI) | payer MEDICARE, SELFPAY ==
--- NOTE | 2024-06-17 12:27 | VDLE_ITS ---
Reason For Study: ELEVATED D-DIMER RIGHT LEFT GSV is normal. CFV is compressible, spontaneous, phasic, CFV is compressible, spontaneous, phasic, competent, and demonstrates normal competent and demonstrates normal augmentation. augmentation. FV is compressible, spontaneous, phasic, FV is compressible, spontaneous, phasic, competent and demonstrates normal competent and demonstrates normal augmentation. augmentation. POP V is compressible, spontaneous, phasic, POP V is compressible, spontaneous, phasic, competent and demonstrates normal competent and demonstrates normal augmentation. augmentation. T/P Trunk is compressible. T/P Trunk is compressible. PTV is compressible. PTV is compressible. LT PerV is compressible. RT PerV is compressible. Unable to visualize GSV, PT has HX of vein Procedure stripping. This is a venous duplex using B-mode, color flow and spectral Doppler. Exam performed in department. The study was technically difficult. D/T body habitus. A preliminary report was called and/or faxed to Dr. Purvis @ 13:30 @ [phone]. VL/Venous Duplex US - Jose Extrem Interpretation Summary Deep veins of the lower extremities are bilaterally patent and compressible seg mentally. There is no evidence of deep vein thrombosis on either side. Valvular competence appears in tact within the proximal deep venous systems bilaterally. The right great saphenous vein appear s patent and compressible segmentally. The left great saphenous vein is absent, having been previously harvested. Ordering Physician: Madi Purvis Referring Physician: Chauncey Dale Performed By: Geeta Poe, EBENEZER, RVT
--- NOTE | 2024-06-17 12:27 | VDLE_ITS ---
Reason For Study: ELEVATED D-DIMER RIGHT LEFT GSV is normal. CFV is compressible, spontaneous, phasic, CFV is compressible, spontaneous, phasic, competent, and demonstrates normal competent and demonstrates normal augmentation. augmentation. FV is compressible, spontaneous, phasic, FV is compressible, spontaneous, phasic, competent and demonstrates normal competent and demonstrates normal augmentation. augmentation. POP V is compressible, spontaneous, phasic, POP V is compressible, spontaneous, phasic, competent and demonstrates normal competent and demonstrates normal augmentation. augmentation. T/P Trunk is compressible. T/P Trunk is compressible. PTV is compressible. PTV is compressible. LT PerV is compressible. RT PerV is compressible. Unable to visualize GSV, PT has HX of vein Procedure stripping. This is a venous duplex using B-mode, color flow and spectral Doppler. Exam performed in department. The study was technically difficult. D/T body habitus. A preliminary report was called and/or faxed to Dr. Purvis @ 13:30 @ [phone]. VL/Venous Duplex US - Jose Extrem Interpretation Summary Deep veins of the lower extremities are bilaterally patent and compressible seg mentally. There is no evidence of deep vein thrombosis on either side. Valvular competence appears in tact within the proximal deep venous systems bilaterally. The right great saphenous vein appear s patent and compressible segmentally. The left great saphenous vein is absent, having been previously harvested. Ordering Physician: Madi Purvis Referring Physician: Chauncey Dale Performed By: Geeta Poe, EBENEZER, RVT
== END | disposition home or self-care (01) ==
LOC: CVS 12:26
PROVIDERS: PCP Internal Medicine; Referring Provider Internal Medicine Medical Oncology; Visit Provider Internal Medicine Medical Oncology
DX: R60.0 Localized edema (principal); R79.89 Other specified abnormal findings of blood chemistry
CPT/HCPCS: 93970

== ENCOUNTER → 2024-09-08 | Outpatient (CLI) | payer MEDICARE, SELFPAY ==
[2024-09-08 17:39] LABS: Anion Gap 8 (5-15); BUN 18 mg/dL (7-18); BUN/Creat Ratio 13.8 RATIO (10-20); Calcium,Total 9.6 mg/dL (8.5-10.1); Chloride 102 mmol/L (98-107); EST Glomerular Filtration Rate 44 mL/min (>60); Est Glom Filt Rate - Afr Amer 53 mL/min (>60); Glucose 109 mg/dL (74-106); Potassium 3.8 mmol/L (3.5-5.1); Sodium Level 136 mmol/L (136-145)
== END | disposition home or self-care (01) ==
LOC: BIMLAB 14:26
PROVIDERS: PCP Internal Medicine; Visit Provider Internal Medicine
DX: I10 Essential (primary) hypertension (principal)
CPT/HCPCS: 36415; 80048

== ENCOUNTER → 2024-09-09 | Outpatient (CLI) | payer MEDICARE, SELFPAY ==
[2024-09-09 15:39] LABS: Microalbumin,Random Urine 22.3 mg/L (NO RANGE EST.); Microalbumin:Creatinine Ratio 30.5 mg/g CRE (<30 mg/g CRE)
== END | disposition home or self-care (01) ==
LOC: LABSPEC 12:09
PROVIDERS: PCP Internal Medicine; Referring Provider Internal Medicine; Visit Provider Internal Medicine
DX: I10 Essential (primary) hypertension (principal); N28.9 Disorder of kidney and ureter, unspecified
CPT/HCPCS: 82043; 82570

== ENCOUNTER → 2024-10-25 | Outpatient (CLI) | payer MEDICARE, SELFPAY ==
[2024-10-25 14:17] LABS: Anion Gap 13 (5-15); BUN 15 mg/dL (4-19); BUN/Creat Ratio 11.7 RATIO (10-20); Calcium,Total 9.4 mg/dL (7.6-11.0); Chloride 102 mmol/L (98-108); EST Glomerular Filtration Rate 46 (>60); Glucose 100 mg/dL (70-99); Potassium 4.3 mmol/L (3.3-5.1); Sodium Level 136 mmol/L (133-145)
== END | disposition home or self-care (01) ==
LOC: BIMLAB 08:45
PROVIDERS: PCP Internal Medicine; Referring Provider Internal Medicine; Visit Provider Internal Medicine
DX: N28.9 Disorder of kidney and ureter, unspecified (principal)
CPT/HCPCS: 36415; 80048

== ENCOUNTER → 2024-12-08 | Outpatient (CLI) | payer MEDICARE, SELFPAY ==
[2024-12-08 12:51] LABS: International Normalized Ratio 0.9; Prothrombin Time (Protime)PT. 12.6 SECONDS (11.7-14.9)
[2024-12-08 12:52] LABS: Partial Thromboplast Time 23.5 Seconds (24.1-36.2)
[2024-12-08 12:56] LABS: Absolute Lymphocyte Count 1.99 X10^3/uL (0.83-4.51); Absolute Neutrophil Count 2.3 X10^3/uL (2.0-7.7); Basophil# 0.08 X10^3/uL; Basophil% 1.5 % (0-1); Eosinophil# 0.42 X10^3/uL; Eosinophils% 7.9 % (0-5); Hemoglobin 11.7 g/dL (12.0-15.0); Lymphocyte # 1.99 X10^3/ul (0.83-4.51); Lymphocyte % 37.5 % (19-41); Mean Corp Hgb Conc 32.5 g/dL (32-36); Mean Corpuscular Hgb 29.8 pg (27.0-32.0); Mean Corpuscular Volume 91.6 fL (81-99); Mean Platelet Vol. 11.9 fl (6.2-12.0); Monocyte% 9.4 % (0-10); NRBC Flagged by Analyzer 0 % (0-5); Neutrophil # 2.31 X10^3/uL (2.7-7.7); Neutrophil % 43.5 % (47-70); Platelet Count 250 K/mm3 (150-450); RBC Distribution Width CV 14.1 % (11.6-14.6); RBC Distribution Width SD 47.7 fl (35.1-43.9); Red Blood Count 3.93 M/mm3 (4.2-5.4); White Blood Count 5.3 K/mm3 (4.4-11.0)
[2024-12-08 12:58] LABS: D-Dimer Quantitative (DVT/PE) 0.51 FEU/ug/m (0.27-0.49)
[2024-12-08 13:21] LABS: ALB/GLOB Ratio 1.5 RATIO (0.9-2.4); AST(SGOT) 24 U/L (<=31); Alanine Aminotransfer ALT/SGPT 16 U/L (<=34); Albumin, Serum 4.1 g/dL (3.4-4.8); Alkaline Phosphatase 103 U/L (35-104); Anion Gap 11 (5-15); BUN 17 mg/dL (4-19); BUN/Creat Ratio 14.4 RATIO (10-20); Calcium,Total 9.4 mg/dL (7.6-11.0); Carbon Dioxide 22.2 mmol/L (21.0-32.0); Chloride 100 mmol/L (98-108); Creatinine, Serum 1.21 mg/dL (0.70-1.20); EST Glomerular Filtration Rate 50 (>60); Globulin 2.8 g/dL (2.2-4.2); Glucose 86 mg/dL (70-99); LDH 201 U/L (84-246); Potassium 4.5 mmol/L (3.3-5.1); Protein, Total 6.9 g/dL (5.9-8.4); Sodium Level 133 mmol/L (133-145); Total Bilirubin 0.49 mg/dL (0.00-1.30)
== END | disposition home or self-care (01) ==
LOC: BIMLAB 10:24
PROVIDERS: PCP Internal Medicine; Referring Provider Internal Medicine Medical Oncology; Visit Provider Internal Medicine Medical Oncology
DX: D68.51 Activated protein C resistance (principal); I26.99 Other pulmonary embolism without acute cor pulmonale; Z79.01 Long term (current) use of anticoagulants
CPT/HCPCS: 36415; 80053; 83615; 85025; 85379; 85610; 85730

== ENCOUNTER → 2025-01-11 | Outpatient (CLI) | payer MEDICARE, SELFPAY ==
--- NOTE | 2025-01-11 12:00 | BI_ITS ---
EXAM: SCRN MAMM (CAD)W/LEONIDAS BILAT DATE: 01/11/2025 CLINICAL HISTORY: F, Age 65 y/o , BREAST CANCER SCREENING BREAST CANCER RISK ASSESSMENT: Na TECHNIQUE: Bilateral screening digital breast tomosynthesis with 2D and 3D images. Computer aided detection. COMPARISON: Prior exam(s) were compared FINDINGS: TISSUE DENSITY: The breast tissue is composed of scattered area of fibroglandular density. Bilateral Breast Mammographic Findings: No suspicious masses, calcifications or other abnormalities are identified. BI/SCRN MAMM (CAD)W/LEONIDAS BILAT IMPRESSION: OVERALL FINAL ASSESSMENT: BIRADS 1 NEGATIVE RECOMMENDATION: Routine annual follow-up in 1 Year A letter with findings and recommendations will be mailed to the patient. Reading Location: [id number]
== END | disposition home or self-care (01) ==
LOC: OPBI 11:51
PROVIDERS: PCP Internal Medicine; Referring Provider Internal Medicine; Visit Provider Internal Medicine
DX: Z12.31 Encounter for screening mammogram for malignant neoplasm of breast (principal)
CPT/HCPCS: 77063; 77067

== ENCOUNTER → 2025-01-14 | Outpatient (CLI) | payer MEDICARE, SELFPAY | END | disposition home or self-care (01) | LOC: LABSPEC 10:58 | PROVIDERS: PCP Internal Medicine; Referring Provider Physician Assistant Surgical; Visit Provider Physician Assistant Surgical | DX: R35.0 Frequency of micturition (principal) | CPT/HCPCS: 87086 ==

== ENCOUNTER → 2025-07-11 | Outpatient (CLI) | payer MEDICARE, SELFPAY ==
--- NOTE | 2025-07-11 07:44 | US_ITS ---
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 TECHNIQUE: Procedure Code: [id number] Modality: US Procedure: ABD LIMITED W/ ELASTOGRAPHY Right upper quadrant abdominal ultrasound. [email or web address] ElastQ Imaging shear wave elastography for non-invasive assessment of liver tissue stiffness. [employer] EPIQ Elite. FINDINGS: LIVER: Size: Borderline hepatomegaly. Length: 17.7 cm Echotexture: Diffusely echogenic suggesting fatty infiltration Contour: Normal Lesions: None identified Elastography: EQI Med: 4.3 kPa EQI Med Hossein: 1.18 m/s IQR/Med: 19.2 %* GALLBLADDER: Normal COMMON BILE DUCT: Normal measuring 4.4 mm. . PANCREAS: Visualized portions are unremarkable. The distal body and tail are obscured by bowel gas. Visualized portions of the right kidney are unremarkable. No right upper quadrant ascites. US/ABD Limited w/ Elastography IMPRESSION: No evidence of hepatic fibrosis. Borderline hepatomegaly and fatty infiltration of the liver. Reference Values: SRU <1.37 m/s (5.7kPa): No to mild fibrosis 1.37 m/s - 2.2 m/s: Moderate to severe fibrosis >2.2 m/s (15kPa): Significant fibrosis / cirrhosis METAVIR Score F2 or higher: 1.34 m/s (5.7kPa) F3 or higher: 1.55 m/s (7.3kPa) F4: 1.80 m/s (10kPa) * If the IQR/Med is >30%, the variance in the measurements is a large and the a ccuracy of the measurement may be in question. Reading Location: [place] [id number]
== END | disposition home or self-care (01) ==
PROVIDERS: PCP Internal Medicine; Referring Provider Internal Medicine Medical Oncology; Visit Provider Internal Medicine Medical Oncology
DX: D68.51 Activated protein C resistance (principal)
CPT/HCPCS: 76705; 76981

== ENCOUNTER → 2025-07-19 | Outpatient (CLI) | payer MEDICARE, SELFPAY ==
[2025-07-19 15:50] LABS: AST(SGOT) 28 U/L (<=31); Alanine Aminotransfer ALT/SGPT 26 U/L (<=34); Albumin, Serum 3.9 g/dL (3.4-4.8); Alkaline Phosphatase 112 U/L (35-104); Anion Gap 11 (5-15); BUN 12 mg/dL (4-19); BUN/Creat Ratio 12.2 RATIO (10-20); Calcium,Total 9.0 mg/dL (7.6-11.0); Carbon Dioxide 21.6 mmol/L (21.0-32.0); Chloride 103 mmol/L (98-108); Globulin 2.4 g/dL (2.2-4.2); Glucose 121 mg/dL (70-99); Potassium 4.1 mmol/L (3.3-5.1)
== END | disposition home or self-care (01) ==
PROVIDERS: PCP Internal Medicine; Referring Provider Internal Medicine; Visit Provider Internal Medicine
DX: E78.5 Hyperlipidemia, unspecified (principal)
CPT/HCPCS: 36415; 80053